=== PATIENT | female | born 1970 | race Caucasian/White ===

== ENCOUNTER 2016-12-04 14:52 | Outpatient (CLI) | payer OTHER ==
[~2016-12-04 14:52] MED LIST: AMLODIPINE10 M1 PO; ASPIRIN ADULT L81 M1 PO; ASPIRIN81 M1 PO; COUMADIN5 MG PO; COZAAR50 MG PO; CYCLOBENZAPRINE10 M5 OP; CYCLOBENZAPRINE10 M7 PO; FUROSEMIDE20 M1 PO; HCTZ PO; HYDRO PAR25 MG; LASIX20 MG PO; LOSARTAN POTAS100 MG PO; NAPROSYN500 MG PO; NAPROXEN550 MG OP; NEURONTIN100 M1 PO; NIASPAN750 MG PO; NORCO 10/325 MG1 TAB PO; NORVASC10 MG PO; PRAVACHOL40 MG PO; PRAVASTATIN40 M1 PO; PRINIVIL10 M1 PO; TRAMADOL HYDROC PO; TRAMADOL/APAP 31 TAB PO; ULTRAM50 MG PO; ZOCOR20 M1 PO
[2016-12-16] MEDS ORDERED: ATORVASTATIN CA40 MG PO (16:08)
[2016-12-16] MEDS ORDERED: BACLOFEN10 M1 PO (16:08)
[2016-12-16] MEDS ORDERED: PROAIR HFA8.5 GM IH (16:08)
[2016-12-16] MEDS ORDERED: HYDROCHLOROTH12.5 M1 PO (16:08)
[2016-12-16] MEDS ORDERED: LOSARTAN POTAS100 MG PO (16:08)
[2017-02-01] MEDS ORDERED: BENADRYL25 M3 PO (16:49)
== END 2016-12-04 20:20 | disposition home or self-care (01) ==
LOC: MLB 14:52
PROVIDERS: ATTEND Family Medicine
DX: I82.402 Acute embolism and thrombosis of unspecified deep veins of left lower extremity (principal)

== ENCOUNTER 2016-12-23 15:30 | Outpatient (CLI) | payer OTHER ==
[~2016-12-23 15:30] MED LIST changes: +ATORVASTATIN CA40 MG PO; +BACLOFEN10 M1 PO; +HYDROCHLOROTH12.5 M1 PO; +PROAIR HFA8.5 GM IH
[2017-02-01] MEDS ORDERED: BENADRYL25 M3 PO (16:49)
== END 2016-12-23 21:57 | disposition home or self-care (01) ==
LOC: MLB 15:30
PROVIDERS: ATTEND Family Medicine
DX: Z51.81 Encounter for therapeutic drug level monitoring (principal); I82.402 Acute embolism and thrombosis of unspecified deep veins of left lower extremity; Z79.01 Long term (current) use of anticoagulants

== ENCOUNTER 2017-01-30 08:07 | Outpatient (CLI) | payer OTHER ==
[~2017-01-30 08:07] MED LIST changes: +ALBU0.0946 IH; -AMLODIPINE10 M1 PO; -ASPIRIN ADULT L81 M1 PO; -ASPIRIN81 M1 PO; +ATOR40TA40 PO; -ATORVASTATIN CA40 MG PO; +BACL10TA4 PO; -BACLOFEN10 M1 PO; -COUMADIN5 MG PO; -COZAAR50 MG PO; -CYCLOBENZAPRINE10 M5 OP; -CYCLOBENZAPRINE10 M7 PO; -FUROSEMIDE20 M1 PO; -HCTZ PO; +HYDR12.51 PO; -HYDRO PAR25 MG; -HYDROCHLOROTH12.5 M1 PO; -LASIX20 MG PO; +LOSA100T25 PO; -LOSARTAN POTAS100 MG PO; -NAPROSYN500 MG PO; -NAPROXEN550 MG OP; -NEURONTIN100 M1 PO; -NIASPAN750 MG PO; -NORCO 10/325 MG1 TAB PO; -NORVASC10 MG PO; -PRAVACHOL40 MG PO; -PRAVASTATIN40 M1 PO; -PRINIVIL10 M1 PO; -PROAIR HFA8.5 GM IH; +TRAM50TA94 PO; -TRAMADOL HYDROC PO; -TRAMADOL/APAP 31 TAB PO; -ULTRAM50 MG PO; +WARF-18 PO; -ZOCOR20 M1 PO
[2017-01-30 09:16] LABS: INR 1.7 (0.8-1.2); PROTHROMBIN TIME 16.1 secs (10.8-13.4)
[2017-01-30 09:17] LABS: ALBUMIN 3.7 g/dL (3.4-5.0); CALCIUM 8.8 mg/dL (8.5-10.1); CARBON DIOXIDE 29.1 mmol/L (21-32); CHOL/HDL RATIO 3.1 (1-4.5); POTASSIUM 4.1 mmol/L (3.5-5.1); TOTAL BILIRUBIN 0.3 mg/dL (0.0-1.0)
== END 2017-01-30 19:59 | disposition home or self-care (01) ==
LOC: MLB 08:07
PROVIDERS: ATTEND Family Medicine
DX: I10 Essential (primary) hypertension (principal); E78.5 Hyperlipidemia, unspecified
CPT/HCPCS: 36415; 80053; 85610

== ENCOUNTER 2017-02-01 16:27 | Emergency (ER) | payer OTHER ==
[~2017-02-01] VITALS: Ht 170.2 cm; Wt 113.4 kg
[2017-02-01 16:46] VITALS: BP 146/65
[2017-02-01] MEDS ORDERED: DIPH25TA53 PO (16:49)
--- NOTE | 2017-02-01 17:00 | NUR ---
Patient to US via wheelchair per tech.
--- NOTE | 2017-02-01 17:19 | NUR ---
Patient back from US taken to bed 06 via wheelchair per tech.
--- NOTE | 2017-02-01 17:20 | NUR ---
PT PRESENT TO ER DUE TO LEFT LEG SWELLING X1 WEEK;DENIES NUMBNESS/TINGLING SENSATION ON LEFT FOOT;MILD REDNESS NOTED;DENIES CP/SOB/COUGH/N/V/F AT THIS TIME.SKIN IS INTACT;UNLABORED BREATHING W/SYMMETRICAL CHEST EXPANSION;AAOX4;NO ACUTE DSITRESS NOTED AT THIS TIME;HOB ELEVATED;NEEDS ATTENDED;SAFETY MEASURES INSTITUTED;MD MADE AWARE OF PT'S CONDITION.
--- NOTE | 2017-02-01 17:29 | NUR ---
Thea pritchett in [facility] - 02/01/17 at [address] GUADALUPE AT [facility].
--- NOTE | 2017-02-01 17:45 | NUR ---
PT RESTING ON BED; AT BEDSIDE;NO ACUTE DISTRESS NOTED AT THIS TIME;WILL CONTINUE TO MONITOR PT.
--- NOTE | 2017-02-01 18:05 | NUR ---
DR GUADALUPE AT BEDSIDE.
--- NOTE | 2017-02-01 18:06 | NUR ---
Dr. Sampson evaluating patient at bedside.
[2017-02-01] MEDS ORDERED: KETOROLAC 60 MG/2 ML VIAL IM ONE (18:15)
--- NOTE | 2017-02-01 18:26 | NUR ---
PT SITTING ON BED;TALKING TO HER ;NO ACUTE DISTRESS NOTED AT THIS TIME;WILL CONTINUE TO MONITOR PT.
[2017-02-01 18:44] VITALS: BP 121/67
--- NOTE | 2017-02-01 18:44 | NUR ---
Patient discharged with v/s stable. Written and verbal after care instructions given and explained.Patient alert, oriented and verbalized understanding of instructions. Ambulatory with steady gait. All questions addressed prior to discharge. ID band removed. Patient advised to follow up with PMD. Rx of KEFLEX AND BACTRIM given. Patient educated on indication of medication including possible reaction and side effects. Opportunity to ask questions provided and answered.
== END 2017-02-01 18:44 | disposition home or self-care (01) ==
LOC: MED 16:27
DX: L03.116 Cellulitis of left lower limb (principal); J44.9 Chronic obstructive pulmonary disease, unspecified; I10 Essential (primary) hypertension; F17.200 Nicotine dependence, unspecified, uncomplicated; Z91.040 Latex allergy status; Z88.8 Allergy status to other drugs, medicaments and biological substances; Z98.890 Other specified postprocedural states; Z86.718 Personal history of other venous thrombosis and embolism; Z79.899 Other long term (current) drug therapy
CPT/HCPCS: 93971; 96372; 99284; J1885

== ENCOUNTER 2017-02-14 07:30 | Outpatient (CLI) | payer OTHER ==
[~2017-02-14 07:30] MED LIST changes: -ALBU0.0946 IH; +AMLODIPINE10 M1 PO; +ASPIRIN ADULT L81 M1 PO; +ASPIRIN81 M1 PO; -ATOR40TA40 PO; +ATORVASTATIN CA40 MG PO; -BACL10TA4 PO; +BACLOFEN10 M1 PO; +BENADRYL25 M3 PO; +COUMADIN5 MG PO; +COZAAR50 MG PO; +CYCLOBENZAPRINE10 M5 OP; +CYCLOBENZAPRINE10 M7 PO; +FUROSEMIDE20 M1 PO; +HCTZ PO; -HYDR12.51 PO; +HYDRO PAR25 MG; +HYDROCHLOROTH12.5 M1 PO; +LASIX20 MG PO; -LOSA100T25 PO; +LOSARTAN POTAS100 MG PO; +NAPROSYN500 MG PO; +NAPROXEN550 MG OP; +NEURONTIN100 M1 PO; +NIASPAN750 MG PO; +NORCO 10/325 MG1 TAB PO; +NORVASC10 MG PO; +PRAVACHOL40 MG PO; +PRAVASTATIN40 M1 PO; +PRINIVIL10 M1 PO; +PROAIR HFA8.5 GM IH; -TRAM50TA94 PO; +TRAMADOL HYDROC PO; +TRAMADOL/APAP 31 TAB PO; +ULTRAM50 MG PO; -WARF-18 PO; +ZOCOR20 M1 PO
== END 2017-02-14 08:45 | disposition home or self-care (01) ==
LOC: MRD 07:30
PROVIDERS: ATTEND Family Medicine
PROC: B42HZZZ Computerized Tomography (CT Scan) of Bilateral Lower Extremity Arteries (ICD-10-PCS; principal; 2017-02-14)
DX: I73.9 Peripheral vascular disease, unspecified (principal)

== ENCOUNTER 2017-02-17 13:38 | Emergency (ER) | payer OTHER ==
[~2017-02-17] VITALS: Ht 170.2 cm; Wt 113.4 kg
[~2017-02-17 13:38] MED LIST changes: +ALBU0.0946 IH; -AMLODIPINE10 M1 PO; -ASPIRIN ADULT L81 M1 PO; -ASPIRIN81 M1 PO; +ATOR40TA40 PO; -ATORVASTATIN CA40 MG PO; +BACL10TA4 PO; -BACLOFEN10 M1 PO; -BENADRYL25 M3 PO; -COUMADIN5 MG PO; -COZAAR50 MG PO; -CYCLOBENZAPRINE10 M5 OP; -CYCLOBENZAPRINE10 M7 PO; +DIPH25TA53 PO; -FUROSEMIDE20 M1 PO; -HCTZ PO; +HYDR12.51 PO; -HYDRO PAR25 MG; -HYDROCHLOROTH12.5 M1 PO; -LASIX20 MG PO; +LOSA100T25 PO; -LOSARTAN POTAS100 MG PO; -NAPROSYN500 MG PO; -NAPROXEN550 MG OP; -NEURONTIN100 M1 PO; -NIASPAN750 MG PO; -NORCO 10/325 MG1 TAB PO; -NORVASC10 MG PO; -PRAVACHOL40 MG PO; -PRAVASTATIN40 M1 PO; -PRINIVIL10 M1 PO; -PROAIR HFA8.5 GM IH; -TRAMADOL HYDROC PO; -TRAMADOL/APAP 31 TAB PO; -ULTRAM50 MG PO; +WARF-18 PO; -ZOCOR20 M1 PO
[2017-02-17 13:42] VITALS: BP 109/65
--- NOTE | 2017-02-17 16:30 | NUR ---
PATIENT PRESENTS TO ED WITH C/O LEFT LEG PAIN AND SWELLING SINCE ., ULTRASOUND WAS DONE LAST MONDAY WITH -VE RESULT; DENIES N/V/D; SKIN IS PINK/WARM/DRY; AAOX4 WITH EVEN AND STEADY GAIT; LUNGS CLEAR BL; HR EVEN AND REGULAR; PT DENIES ANY FEVER, CP, SOB, OR COUGH AT THIS TIME; PATIENT STATES PAIN OF 5/10 AT THIS TIME; VSS; PATIENT POSITIONED FOR COMFORT; HOB ELEVATED; BEDRAILS UP X2; BED DOWN. ER MD MADE AWARE OF PT STATUS.
--- NOTE | 2017-02-17 16:42 | NUR ---
AAO PT BEING ASSESS BY DR GUADALUPE AT BEDSIDE
[2017-02-17 17:00] VITALS: BP 119/78
--- NOTE | 2017-02-17 17:00 | NUR ---
Patient discharged with v/s stable. Written and verbal after care instructions given and explained. Patient verbalized understanding. Ambulatory with steady gait. All questions addressed prior to discharge. Advised to follow up with PMD.
== END 2017-02-17 17:00 | disposition home or self-care (01) ==
LOC: MED 13:40
DX: R60.0 Localized edema (principal); M79.662 Pain in left lower leg; M25.572 Pain in left ankle and joints of left foot; I10 Essential (primary) hypertension; J44.9 Chronic obstructive pulmonary disease, unspecified; Z91.040 Latex allergy status; Z88.8 Allergy status to other drugs, medicaments and biological substances; Z79.899 Other long term (current) drug therapy; Z98.890 Other specified postprocedural states
CPT/HCPCS: 99283

== ENCOUNTER 2017-03-02 07:08 | Outpatient (CLI) | payer OTHER ==
[2017-03-02 09:45] LABS: PROTHROMBIN TIME 18.9 secs (10.8-13.4)
[2017-03-02 10:07] LABS: ANION GAP 14.1 (8-16); CALCIUM 8.8 mg/dL (8.5-10.1); CARBON DIOXIDE 25.4 mmol/L (21-32); CREATININE 0.8 mg/dL (0.6-1.3); POTASSIUM 4.5 mmol/L (3.5-5.1); TOTAL BILIRUBIN 0.2 mg/dL (0.0-1.0); TOTAL PROTEIN, SERUM 7.1 g/dL (6.4-8.2)
[2017-03-02 10:20] LABS: ALBUMIN 3.6 g/dL (3.4-5.0)
== END 2017-03-02 19:58 | disposition home or self-care (01) ==
LOC: MLB 07:08
PROVIDERS: ATTEND Family Medicine
DX: Z51.81 Encounter for therapeutic drug level monitoring (principal); I12.9 Hypertensive chronic kidney disease with stage 1 through stage 4 chronic kidney disease, or unspecified chronic kidney disease; N18.2 Chronic kidney disease, stage 2 (mild); I82.409 Acute embolism and thrombosis of unspecified deep veins of unspecified lower extremity; Z79.01 Long term (current) use of anticoagulants
CPT/HCPCS: 36415; 80053; 85610

== ENCOUNTER 2017-03-25 15:04 | Outpatient (CLI) | payer OTHER ==
[2017-03-25 16:21] LABS: INR 1.8 (0.8-1.2); PROTHROMBIN TIME 18.3 secs (10.8-13.4)
== END 2017-03-25 21:32 | disposition home or self-care (01) ==
LOC: MLB 15:04
PROVIDERS: ATTEND Family Medicine
DX: I82.402 Acute embolism and thrombosis of unspecified deep veins of left lower extremity (principal)
CPT/HCPCS: 36415; 85610

== ENCOUNTER 2017-07-03 09:01 | Outpatient (RCR) | payer OTHER ==
[~2017-07-03 09:01] MED LIST changes: -ALBU0.0946 IH; +AMLODIPINE10 M1 PO; +ASPIRIN ADULT L81 M1 PO; +ASPIRIN81 M1 PO; -ATOR40TA40 PO; +ATORVASTATIN CA40 MG PO; -BACL10TA4 PO; +BACLOFEN10 M1 PO; +BENADRYL25 M3 PO; +COUMADIN5 MG PO; +COZAAR50 MG PO; +CYCLOBENZAPRINE10 M5 OP; +CYCLOBENZAPRINE10 M7 PO; -DIPH25TA53 PO; +FUROSEMIDE20 M1 PO; +HCTZ PO; -HYDR12.51 PO; +HYDRO PAR25 MG; +HYDROCHLOROTH12.5 M1 PO; +LASIX20 MG PO; -LOSA100T25 PO; +LOSARTAN POTAS100 MG PO; +NAPROSYN500 MG PO; +NAPROXEN550 MG OP; +NEURONTIN100 M1 PO; +NIASPAN750 MG PO; +NORCO 10/325 MG1 TAB PO; +NORVASC10 MG PO; +PRAVACHOL40 MG PO; +PRAVASTATIN40 M1 PO; +PRINIVIL10 M1 PO; +PROAIR HFA8.5 GM IH; +TRAMADOL HYDROC PO; +TRAMADOL/APAP 31 TAB PO; +ULTRAM50 MG PO; -WARF-18 PO; +ZOCOR20 M1 PO
== END 2017-07-15 | disposition home or self-care (01) ==
LOC: MLB 09:01 → EDBD 09:01
PROVIDERS: ATTEND Family Medicine
DX: I82.4Z2 Acute embolism and thrombosis of unspecified deep veins of left distal lower extremity (principal)

== ENCOUNTER 2017-10-07 10:54 | Outpatient (CLI) | payer OTHER ==
[~2017-10-07 10:54] MED LIST changes: +ALBU-118 IH; -AMLODIPINE10 M1 PO; -ASPIRIN ADULT L81 M1 PO; -ASPIRIN81 M1 PO; +ATOR40TA40 PO; -ATORVASTATIN CA40 MG PO; +BACL10TA4 PO; -BACLOFEN10 M1 PO; -BENADRYL25 M3 PO; -COUMADIN5 MG PO; -COZAAR50 MG PO; -CYCLOBENZAPRINE10 M5 OP; -CYCLOBENZAPRINE10 M7 PO; +DIPH25TA53 PO; -FUROSEMIDE20 M1 PO; -HCTZ PO; +HYDR12.51 PO; -HYDRO PAR25 MG; -HYDROCHLOROTH12.5 M1 PO; -LASIX20 MG PO; +LOSA100T25 PO; -LOSARTAN POTAS100 MG PO; -NAPROSYN500 MG PO; -NAPROXEN550 MG OP; -NEURONTIN100 M1 PO; -NIASPAN750 MG PO; -NORCO 10/325 MG1 TAB PO; -NORVASC10 MG PO; -PRAVACHOL40 MG PO; -PRAVASTATIN40 M1 PO; -PRINIVIL10 M1 PO; -PROAIR HFA8.5 GM IH; -TRAMADOL HYDROC PO; -TRAMADOL/APAP 31 TAB PO; -ULTRAM50 MG PO; +WARF-18 PO; -ZOCOR20 M1 PO
[2017-10-07 11:39] LABS: PROTHROMBIN TIME 19.2 secs (10.8-13.4)
== END 2017-10-08 22:57 | disposition home or self-care (01) ==
LOC: MLB 10:54
PROVIDERS: ATTEND Family Medicine
DX: I10 Essential (primary) hypertension (principal); E11.9 Type 2 diabetes mellitus without complications
CPT/HCPCS: 36415; 85610

== ENCOUNTER 2017-10-28 12:43 | Outpatient (CLI) | payer OTHER ==
[2017-10-28 15:04] LABS: PROTHROMBIN TIME 15.6 secs (10.8-13.4)
== END 2017-10-28 20:29 | disposition home or self-care (01) ==
LOC: MLB 12:43
PROVIDERS: ATTEND Family Medicine
DX: I82.402 Acute embolism and thrombosis of unspecified deep veins of left lower extremity (principal); I10 Essential (primary) hypertension; J44.9 Chronic obstructive pulmonary disease, unspecified; J45.909 Unspecified asthma, uncomplicated
CPT/HCPCS: 36415; 85610

== ENCOUNTER 2017-11-25 12:45 | Outpatient (CLI) | payer OTHER ==
[2017-11-25 13:53] LABS: PROTHROMBIN TIME 21.4 secs (10.8-13.4)
== END 2017-11-25 22:16 | disposition home or self-care (01) ==
LOC: MLB 12:45
PROVIDERS: ATTEND Family Medicine
DX: I10 Essential (primary) hypertension (principal)
CPT/HCPCS: 36415; 85610

== ENCOUNTER 2017-12-30 13:08 | Outpatient (CLI) | payer OTHER ==
[2017-12-30 15:12] LABS: PROTHROMBIN TIME 22.8 secs (10.8-13.4)
== END 2017-12-30 21:19 | disposition home or self-care (01) ==
LOC: MLB 13:08
PROVIDERS: ATTEND Family Medicine
DX: I10 Essential (primary) hypertension (principal); I82.402 Acute embolism and thrombosis of unspecified deep veins of left lower extremity
CPT/HCPCS: 36415; 85610

== ENCOUNTER 2018-02-06 08:29 | Outpatient (CLI) | payer OTHER ==
[2018-02-06 09:11] LABS: BASOPHILS % (AUTO) 0.6 % (0.0-2.0); EOSINOPHILS # (AUTO) 0.1 K/uL (0-0.4); EOSINOPHILS % (AUTO) 1.4 % (0.0-4.0); HEMATOCRIT 40.8 % (36-48); HEMOGLOBIN 13.2 g/dL (12.0-16.0); LYMPHOCYTES # (AUTO) 1.3 K/uL (2.5-16.5); LYMPHOCYTES % (AUTO) 15.8 % (20.5-51.1); MEAN CORPUSCULAR HEMOGLOBIN 29 pg (27-31); MEAN CORPUSCULAR HGB CONC 32 g/dL (33-37); MEAN CORPUSCULAR VOLUME 88.8 fL (80-94); MONOCYTES # (AUTO) 0.6 K/uL (0.8-1.0); NEUTROPHILS # (AUTO) 6.4 K/uL (1.8-7.7); NEUTROPHILS % (AUTO) 75.2 % (42.2-75.2); PLATELET COUNT (AUTO) 254 K/uL (140-450); RED BLOOD CELL COUNT(AUTO) 4.59 MIL/uL (4.20-5.40); RED CELL DISTRIBUTION WIDTH 17.6 % (11.6-13.7); WHITE BLOOD COUNT (AUTO) 8.4 K/uL (4.8-10.8)
[2018-02-06 09:38] LABS: ALBUMIN 3.8 g/dL (3.4-5.0); ANION GAP 13.1 (8-16); CARBON DIOXIDE 27.1 mmol/L (21-32); CHOL/HDL RATIO 3.4 (1-4.5); CREATININE 0.8 mg/dL (0.6-1.3); POTASSIUM 4.2 mmol/L (3.5-5.1); THYROID STIMULATING HORMONE 1.27 uIU/mL (0.34-3.74); TOTAL BILIRUBIN 0.3 mg/dL (0.0-1.0)
[2018-02-06 10:04] LABS: PROTHROMBIN TIME 21.2 secs (10.8-13.4)
== END 2018-02-06 20:37 | disposition home or self-care (01) ==
LOC: MLB 08:29
PROVIDERS: ATTEND Family Medicine
DX: I10 Essential (primary) hypertension (principal); E78.5 Hyperlipidemia, unspecified; I82.402 Acute embolism and thrombosis of unspecified deep veins of left lower extremity
CPT/HCPCS: 36415; 80053; 84443; 85025; 85610

== ENCOUNTER 2018-03-04 08:00 | Outpatient (CLI) | payer OTHER ==
[2018-03-04 08:48] LABS: PROTHROMBIN TIME 20.7 secs (10.8-13.4)
== END 2018-03-04 20:03 | disposition home or self-care (01) ==
LOC: MLB 08:00
PROVIDERS: ATTEND Family Medicine
DX: I82.402 Acute embolism and thrombosis of unspecified deep veins of left lower extremity (principal); I10 Essential (primary) hypertension; J44.9 Chronic obstructive pulmonary disease, unspecified
CPT/HCPCS: 36415; 85610

== ENCOUNTER 2018-04-01 08:51 | Outpatient (CLI) | payer OTHER | END 2018-04-01 22:30 | disposition home or self-care (01) | LOC: MLB 08:51 | PROVIDERS: ATTEND Family Medicine | DX: I82.402 Acute embolism and thrombosis of unspecified deep veins of left lower extremity (principal) | CPT/HCPCS: 36415; 85610 ==

== ENCOUNTER 2018-05-14 08:31 | Outpatient (CLI) | payer OTHER ==
[2018-05-14 09:35] LABS: PROTHROMBIN TIME 20.3 secs (10.8-13.4)
[2018-05-14 09:45] LABS: ALBUMIN 3.8 g/dL (3.4-5.0); ANION GAP 15.6 (8-16); CARBON DIOXIDE 23.4 mmol/L (21-32); CHOL/HDL RATIO 3.4 (1-4.5); TOTAL BILIRUBIN 0.4 mg/dL (0.0-1.0)
== END 2018-05-14 20:25 | disposition home or self-care (01) ==
LOC: MLB 08:31
PROVIDERS: ATTEND Family Medicine
DX: I10 Essential (primary) hypertension (principal); J44.9 Chronic obstructive pulmonary disease, unspecified; E78.5 Hyperlipidemia, unspecified; E11.9 Type 2 diabetes mellitus without complications; Z79.01 Long term (current) use of anticoagulants
CPT/HCPCS: 36415; 80053; 85610

== ENCOUNTER 2018-06-30 14:29 | Outpatient (CLI) | payer OTHER ==
[2018-06-30 15:18] LABS: PROTHROMBIN TIME 20.5 secs (10.8-13.4)
== END 2018-06-30 22:08 | disposition home or self-care (01) ==
LOC: MLB 14:29
PROVIDERS: ATTEND Family Medicine
DX: I82.402 Acute embolism and thrombosis of unspecified deep veins of left lower extremity (principal); I10 Essential (primary) hypertension; J44.9 Chronic obstructive pulmonary disease, unspecified; Z72.0 Tobacco use
CPT/HCPCS: 36415; 85610

== ENCOUNTER 2018-08-22 08:41 | Outpatient (CLI) | payer OTHER ==
[~2018-08-22 08:41] MED LIST changes: +LOSA100T15 PO; -LOSA100T25 PO
[2018-08-22 09:40] LABS: BASOPHILS # (AUTO) 0.1 K/uL (0.00-0.22); BASOPHILS % (AUTO) 0.7 % (0.0-2.0); EOSINOPHILS # (AUTO) 0.1 K/uL (0-0.4); EOSINOPHILS % (AUTO) 1.6 % (0.0-4.0); HEMATOCRIT 42.2 % (36-48); HEMOGLOBIN 13.7 g/dL (12.0-16.0); LYMPHOCYTES # (AUTO) 1.4 K/uL (2.5-16.5); LYMPHOCYTES % (AUTO) 18.1 % (20.5-51.1); MEAN CORPUSCULAR HEMOGLOBIN 29 pg (27-31); MEAN CORPUSCULAR HGB CONC 32 g/dL (33-37); MEAN CORPUSCULAR VOLUME 89.7 fL (80-94); MONOCYTES # (AUTO) 0.5 K/uL (0.8-1.0); MONOCYTES % (AUTO) 6.9 % (1.7-9.3); NEUTROPHILS # (AUTO) 5.8 K/uL (1.8-7.7); NEUTROPHILS % (AUTO) 72.7 % (42.2-75.2); PLATELET COUNT (AUTO) 263 K/uL (140-450); RED BLOOD CELL COUNT(AUTO) 4.71 MIL/uL (4.20-5.40); RED CELL DISTRIBUTION WIDTH 18.1 % (11.6-13.7); WHITE BLOOD COUNT (AUTO) 7.9 K/uL (4.8-10.8)
[2018-08-22 10:10] LABS: PROTHROMBIN TIME 21.4 secs (10.8-13.4)
[2018-08-22 10:35] LABS: ALBUMIN 3.8 g/dL (3.4-5.0); ANION GAP 10.6 (8-16); CARBON DIOXIDE 31.6 mmol/L (21-32); CREATININE 0.9 mg/dL (0.6-1.3); POTASSIUM 4.2 mmol/L (3.5-5.1); TOTAL BILIRUBIN 0.3 mg/dL (0.0-1.0)
== END 2018-08-22 21:33 | disposition home or self-care (01) ==
LOC: MLB 08:41
PROVIDERS: ATTEND Family Medicine
DX: I82.502 Chronic embolism and thrombosis of unspecified deep veins of left lower extremity (principal); I10 Essential (primary) hypertension; J44.9 Chronic obstructive pulmonary disease, unspecified; Z91.040 Latex allergy status
CPT/HCPCS: 36415; 80053; 85025; 85610

== ENCOUNTER 2018-10-07 14:30 | Emergency (ER) | payer OTHER ==
[~2018-10-07] VITALS: Ht 170.2 cm; Wt 113.4 kg
[~2018-10-07 14:30] MED LIST changes: -LOSA100T15 PO; +LOSA100T51 PO
[2018-10-07 14:38] VITALS: BP_SYST 10; BP_SYST 101; BP_DIAS 63
--- NOTE | 2018-10-07 14:40 | NUR ---
PT AMBULATES TO BED 12
--- NOTE | 2018-10-07 14:58 | NUR ---
48/ F BIB SELF, C/O ITCHY SKIN ULCER ON LEFT LEG FOR 1 WEEK, HAS HAD ULCER FOR 1 YEAR. PT. HAS BEEN SCRATCHING, SKIN BROKEN, NO DISCHARGE. LEG IS SWOLLEN +2 PITTING EDEMA, RED, AND TENDER TO TOUCH. DENIES PAIN, SOB, OR INJURY. HAS HX OF TWO DVT IN LEFT LEG. A0X4, STEADY GAIT, SAFETY PRECAUTION IN PLACE.
[2018-10-07] MEDS ORDERED: SULFAMETH/TRIMETH DS 800/160MG 1 TAB PO ONE (15:10)
[2018-10-07] MEDS ORDERED: ACETAMINOPHEN EXTRA STRENGTH 500 MG TAB PO ONE (15:10)
[2018-10-07 15:21] VITALS: BP 101/63
--- NOTE | 2018-10-07 15:21 | NUR ---
Patient discharged with v/s stable. Written and verbal after care instructions given and explained. Patient alert, oriented and verbalized understanding of instructions. Ambulatory with steady gait. All questions addressed prior to discharge. ID band removed. Patient advised to follow up with PMD. Rx of TYLENOL, TRAMADOL, BACTRIM given. Patient educated on indication of medication including possible reaction and side effects. Opportunity to ask questions provided and answered.
== END 2018-10-07 15:21 | disposition home or self-care (01) ==
LOC: MED 14:30
DX: L03.116 Cellulitis of left lower limb (principal); J45.909 Unspecified asthma, uncomplicated; I10 Essential (primary) hypertension; Z79.899 Other long term (current) drug therapy; Z88.8 Allergy status to other drugs, medicaments and biological substances; Z91.040 Latex allergy status
CPT/HCPCS: 99283

== ENCOUNTER 2018-10-27 14:41 | Outpatient (CLI) | payer OTHER ==
[2018-10-27 15:31] LABS: PROTHROMBIN TIME 12.7 secs (10.8-13.4)
== END 2018-10-27 21:05 | disposition home or self-care (01) ==
LOC: MLB 14:41
PROVIDERS: ATTEND Family Medicine
DX: I82.402 Acute embolism and thrombosis of unspecified deep veins of left lower extremity (principal); I10 Essential (primary) hypertension; J45.909 Unspecified asthma, uncomplicated
CPT/HCPCS: 36415; 85610

== ENCOUNTER 2018-11-27 08:00 | Outpatient (CLI) | payer OTHER ==
[2018-11-27 08:23] LABS: BASOPHILS # (AUTO) 0.1 K/uL (0.00-0.22); BASOPHILS % (AUTO) 0.6 % (0.0-2.0); EOSINOPHILS # (AUTO) 0.2 K/uL (0-0.4); HEMATOCRIT 40.8 % (36-48); HEMOGLOBIN 13.2 g/dL (12.0-16.0); LYMPHOCYTES # (AUTO) 1.3 K/uL (2.5-16.5); LYMPHOCYTES % (AUTO) 15.5 % (20.5-51.1); MEAN CORPUSCULAR HEMOGLOBIN 29 pg (27-31); MEAN CORPUSCULAR HGB CONC 32 g/dL (33-37); MEAN CORPUSCULAR VOLUME 90.8 fL (80-94); MONOCYTES # (AUTO) 0.5 K/uL (0.8-1.0); MONOCYTES % (AUTO) 6.1 % (1.7-9.3); NEUTROPHILS # (AUTO) 6.4 K/uL (1.8-7.7); NEUTROPHILS % (AUTO) 75.8 % (42.2-75.2); PLATELET COUNT (AUTO) 265 K/uL (140-450); RED BLOOD CELL COUNT(AUTO) 4.49 MIL/uL (4.20-5.40); RED CELL DISTRIBUTION WIDTH 17.9 % (11.6-13.7); WHITE BLOOD COUNT (AUTO) 8.5 K/uL (4.8-10.8)
[2018-11-27 08:42] LABS: ALBUMIN 3.9 g/dL (3.4-5.0); ANION GAP 11.1 (8-16); CARBON DIOXIDE 29.6 mmol/L (21-32); CHOL/HDL RATIO 3.5 (1-4.5); CREATININE 0.8 mg/dL (0.6-1.3); POTASSIUM 3.7 mmol/L (3.5-5.1); TOTAL BILIRUBIN 0.3 mg/dL (0.0-1.0)
== END 2018-11-27 20:09 | disposition home or self-care (01) ==
LOC: MLB 08:00
PROVIDERS: ATTEND Family Medicine
DX: I10 Essential (primary) hypertension (principal); I82.502 Chronic embolism and thrombosis of unspecified deep veins of left lower extremity; E11.9 Type 2 diabetes mellitus without complications; J44.9 Chronic obstructive pulmonary disease, unspecified; Z72.0 Tobacco use
CPT/HCPCS: 36415; 80053; 85025; 85610

== ENCOUNTER 2018-12-22 08:39 | Outpatient (CLI) | payer OTHER ==
[2018-12-22 08:58] LABS: BASOPHILS # (AUTO) 0.2 K/uL (0.00-0.22); BASOPHILS % (AUTO) 1.8 % (0.0-2.0); EOSINOPHILS # (AUTO) 0.3 K/uL (0-0.4); HEMATOCRIT 39.6 % (36-48); HEMOGLOBIN 12.8 g/dL (12.0-16.0); LYMPHOCYTES # (AUTO) 1.4 K/uL (2.5-16.5); LYMPHOCYTES % (AUTO) 15.4 % (20.5-51.1); MEAN CORPUSCULAR HEMOGLOBIN 29 pg (27-31); MEAN CORPUSCULAR HGB CONC 32 g/dL (33-37); MEAN CORPUSCULAR VOLUME 90.6 fL (80-94); MONOCYTES # (AUTO) 0.5 K/uL (0.8-1.0); MONOCYTES % (AUTO) 5.5 % (1.7-9.3); NEUTROPHILS # (AUTO) 6.7 K/uL (1.8-7.7); NEUTROPHILS % (AUTO) 74.3 % (42.2-75.2); PLATELET COUNT (AUTO) 337 K/uL (140-450); RED BLOOD CELL COUNT(AUTO) 4.37 MIL/uL (4.20-5.40); RED CELL DISTRIBUTION WIDTH 17.5 % (11.6-13.7)
[2018-12-22 09:28] LABS: PROTHROMBIN TIME 18.5 secs (10.8-13.4)
[2018-12-22 09:33] LABS: ALBUMIN 3.5 g/dL (3.4-5.0); ANION GAP 10.4 (8-16); CARBON DIOXIDE 28.6 mmol/L (21-32); TOTAL BILIRUBIN 0.3 mg/dL (0.0-1.0)
== END 2018-12-22 21:30 | disposition home or self-care (01) ==
LOC: MLB 08:39
PROVIDERS: ATTEND Family Medicine
DX: L03.116 Cellulitis of left lower limb (principal); J45.909 Unspecified asthma, uncomplicated; I10 Essential (primary) hypertension
CPT/HCPCS: 36415; 80053; 85025; 85610

== ENCOUNTER 2019-02-16 08:56 | Outpatient (CLI) | payer OTHER | END 2019-02-16 23:06 | disposition home or self-care (01) | LOC: MLB 08:56 | PROVIDERS: ATTEND Family Medicine | DX: I82.409 Acute embolism and thrombosis of unspecified deep veins of unspecified lower extremity (principal) | CPT/HCPCS: 36415; 85610 ==

== ENCOUNTER 2019-03-31 09:57 | Outpatient (CLI) | payer OTHER | END 2019-03-31 20:16 | disposition home or self-care (01) | LOC: MLB 09:57 | PROVIDERS: ATTEND Family Medicine | DX: I82.409 Acute embolism and thrombosis of unspecified deep veins of unspecified lower extremity (principal) | CPT/HCPCS: 36415; 85610 ==

== ENCOUNTER 2019-05-25 14:36 | Outpatient (CLI) | payer OTHER ==
[2019-05-25 15:45] LABS: PROTHROMBIN TIME 15.3 secs (10.8-13.4)
== END 2019-05-25 21:29 | disposition home or self-care (01) ==
LOC: MLB 14:36
PROVIDERS: ATTEND Family Medicine
DX: I82.409 Acute embolism and thrombosis of unspecified deep veins of unspecified lower extremity (principal)
CPT/HCPCS: 36415; 85610

== ENCOUNTER 2019-06-28 07:49 | Outpatient (CLI) | payer OTHER ==
[2019-06-28 10:47] LABS: BASOPHILS # (AUTO) 0.1 K/uL (0.00-0.22); EOSINOPHILS # (AUTO) 0.1 K/uL (0-0.4); EOSINOPHILS % (AUTO) 1.4 % (0.0-4.0); HEMOGLOBIN 13.6 g/dL (12.0-16.0); LYMPHOCYTES # (AUTO) 1.4 K/uL (2.5-16.5); LYMPHOCYTES % (AUTO) 15.8 % (20.5-51.1); MEAN CORPUSCULAR HEMOGLOBIN 30 pg (27-31); MEAN CORPUSCULAR HGB CONC 33 g/dL (33-37); MEAN CORPUSCULAR VOLUME 91.3 fL (80-94); MONOCYTES # (AUTO) 0.5 K/uL (0.8-1.0); MONOCYTES % (AUTO) 5.2 % (1.7-9.3); NEUTROPHILS # (AUTO) 6.9 K/uL (1.8-7.7); NEUTROPHILS % (AUTO) 76.6 % (42.2-75.2); PLATELET COUNT (AUTO) 255 K/uL (140-450); RED CELL DISTRIBUTION WIDTH 17.5 % (11.6-13.7)
[2019-06-28 11:18] LABS: PROTHROMBIN TIME 16.7 secs (10.8-13.4)
[2019-06-28 13:18] LABS: ANION GAP 12.6 (8-16); CARBON DIOXIDE 27.6 mmol/L (21-32); POTASSIUM 4.2 mmol/L (3.5-5.1)
[2019-06-28 13:19] LABS: ALBUMIN 3.5 g/dL (3.4-5.0); CREATININE 0.8 mg/dL (0.6-1.3); TOTAL BILIRUBIN 0.3 mg/dL (0.0-1.0)
[2019-06-28 16:15] LABS: CHOL/HDL RATIO 4.1 (1-4.5)
== END 2019-06-28 22:24 | disposition home or self-care (01) ==
LOC: MLB 07:49
PROVIDERS: ATTEND Family Medicine
DX: I82.5Z2 Chronic embolism and thrombosis of unspecified deep veins of left distal lower extremity (principal); I10 Essential (primary) hypertension
CPT/HCPCS: 36415; 80053; 82306; 85025; 85610

== ENCOUNTER 2019-07-23 08:13 | Outpatient (CLI) | payer OTHER | END 2019-07-23 21:08 | disposition home or self-care (01) | LOC: MRD 08:13 | PROVIDERS: ATTEND Family Medicine | DX: N60.02 Solitary cyst of left breast (principal); N64.52 Nipple discharge | CPT/HCPCS: 76641 ==

== ENCOUNTER 2019-08-31 14:57 | Outpatient (CLI) | payer OTHER ==
[2019-09-11 12:23] LABS: PROTHROMBIN TIME 21.9 secs (10.8-13.4)
== END 2019-08-31 22:40 | disposition home or self-care (01) ==
LOC: MLB 14:57
PROVIDERS: ATTEND Family Medicine
DX: I82.502 Chronic embolism and thrombosis of unspecified deep veins of left lower extremity (principal)
CPT/HCPCS: 36415; 85610

== ENCOUNTER 2019-09-28 11:04 | Outpatient (CLI) | payer OTHER ==
[2019-09-28 12:26] LABS: PROTHROMBIN TIME 18.9 secs (10.8-13.4)
== END 2019-09-28 20:22 | disposition home or self-care (01) ==
LOC: MLB 11:04
PROVIDERS: ATTEND Family Medicine
DX: I82.5Z2 Chronic embolism and thrombosis of unspecified deep veins of left distal lower extremity (principal); F15.90 Other stimulant use, unspecified, uncomplicated; Z91.040 Latex allergy status; Z91.09 Other allergy status, other than to drugs and biological substances; Z72.0 Tobacco use; I10 Essential (primary) hypertension; J45.909 Unspecified asthma, uncomplicated
CPT/HCPCS: 36415; 85610

== ENCOUNTER 2019-10-27 09:36 | Outpatient (CLI) | payer OTHER ==
[2019-10-27 11:30] LABS: PROTHROMBIN TIME 20.6 secs (10.8-13.4)
== END 2019-10-27 20:40 | disposition home or self-care (01) ==
LOC: MLB 09:36
PROVIDERS: ATTEND Family Medicine
DX: I82.4Z9 Acute embolism and thrombosis of unspecified deep veins of unspecified distal lower extremity (principal)
CPT/HCPCS: 36415; 85610

== ENCOUNTER 2019-12-09 07:40 | Outpatient (CLI) | payer OTHER ==
[2019-12-09 08:13] LABS: BASOPHILS # (AUTO) 0.1 K/uL (0.00-0.22); EOSINOPHILS # (AUTO) 0.2 K/uL (0-0.4); EOSINOPHILS % (AUTO) 2.3 % (0.0-4.0); HEMATOCRIT 40.5 % (36-48); HEMOGLOBIN 13.8 g/dL (12.0-16.0); LYMPHOCYTES # (AUTO) 1.2 K/uL (2.5-16.5); LYMPHOCYTES % (AUTO) 17.6 % (20.5-51.1); MEAN CORPUSCULAR HEMOGLOBIN 31 pg (27-31); MEAN CORPUSCULAR HGB CONC 34 g/dL (33-37); MEAN CORPUSCULAR VOLUME 89.5 fL (80-94); MONOCYTES # (AUTO) 0.4 K/uL (0.8-1.0); MONOCYTES % (AUTO) 6.2 % (1.7-9.3); NEUTROPHILS # (AUTO) 5.1 K/uL (1.8-7.7); NEUTROPHILS % (AUTO) 72.9 % (42.2-75.2); PLATELET COUNT (AUTO) 225 K/uL (140-450); RED BLOOD CELL COUNT(AUTO) 4.53 MIL/uL (4.20-5.40)
[2019-12-09 08:41] LABS: ALBUMIN 3.7 g/dL (3.4-5.0); CARBON DIOXIDE 29.4 mmol/L (21-32); CHOL/HDL RATIO 4.2 (1-4.5); CREATININE 0.9 mg/dL (0.6-1.3); POTASSIUM 4.4 mmol/L (3.5-5.1); TOTAL BILIRUBIN 0.3 mg/dL (0.0-1.0)
== END 2019-12-09 22:01 | disposition home or self-care (01) ==
LOC: MLB 07:40
PROVIDERS: ATTEND Family Medicine
DX: I10 Essential (primary) hypertension (principal)
CPT/HCPCS: 36415; 80053; 82306; 85025

== ENCOUNTER 2019-12-28 13:33 | Outpatient (CLI) | payer OTHER ==
[2019-12-28 14:32] LABS: PROTHROMBIN TIME 23.1 secs (10.8-13.4)
== END 2019-12-28 17:14 | disposition home or self-care (01) ==
LOC: MLB 13:33
PROVIDERS: ATTEND Family Medicine
DX: I82.5Z2 Chronic embolism and thrombosis of unspecified deep veins of left distal lower extremity (principal)
CPT/HCPCS: 36415; 85610

== ENCOUNTER 2020-03-02 08:30 | Outpatient (CLI) | payer OTHER ==
[2020-03-02 09:08] LABS: BASOPHILS # (AUTO) 0.1 K/uL (0.00-0.22); BASOPHILS % (AUTO) 1.1 % (0.0-2.0); EOSINOPHILS # (AUTO) 0.1 K/uL (0-0.4); EOSINOPHILS % (AUTO) 1.8 % (0.0-4.0); HEMATOCRIT 41.3 % (36-48); HEMOGLOBIN 13.7 g/dL (12.0-16.0); LYMPHOCYTES # (AUTO) 1.3 K/uL (2.5-16.5); LYMPHOCYTES % (AUTO) 21.1 % (20.5-51.1); MEAN CORPUSCULAR HEMOGLOBIN 31 pg (27-31); MEAN CORPUSCULAR HGB CONC 33 g/dL (33-37); MEAN CORPUSCULAR VOLUME 94.4 fL (80-94); MONOCYTES # (AUTO) 0.4 K/uL (0.8-1.0); MONOCYTES % (AUTO) 6.1 % (1.7-9.3); NEUTROPHILS # (AUTO) 4.3 K/uL (1.8-7.7); NEUTROPHILS % (AUTO) 69.9 % (42.2-75.2); PLATELET COUNT (AUTO) 219 K/uL (140-450); RED BLOOD CELL COUNT(AUTO) 4.38 MIL/uL (4.20-5.40); RED CELL DISTRIBUTION WIDTH 16.2 % (11.6-13.7); WHITE BLOOD COUNT (AUTO) 6.2 K/uL (4.8-10.8)
[2020-03-02 09:40] LABS: ALBUMIN 3.6 g/dL (3.4-5.0); ANION GAP 13.8 (8-16); CARBON DIOXIDE 28.6 mmol/L (21-32); POTASSIUM 4.4 mmol/L (3.5-5.1); THYROID STIMULATING HORMONE 0.96 uIU/mL (0.34-3.74); TOTAL BILIRUBIN 0.4 mg/dL (0.0-1.0)
[2020-03-02 09:59] LABS: PROTHROMBIN TIME 18.5 secs (10.8-13.4)
== END 2020-03-02 15:25 | disposition home or self-care (01) ==
LOC: MLB 08:30
PROVIDERS: ATTEND Family Medicine
DX: I10 Essential (primary) hypertension (principal); I82.502 Chronic embolism and thrombosis of unspecified deep veins of left lower extremity
CPT/HCPCS: 36415; 80053; 82306; 84443; 85025; 85610

== ENCOUNTER 2020-04-04 13:09 | Outpatient (CLI) | payer OTHER ==
[2020-04-04 14:43] LABS: PROTHROMBIN TIME 20.3 secs (10.8-13.4)
== END 2020-04-04 20:01 | disposition home or self-care (01) ==
LOC: MLB 13:09
PROVIDERS: ATTEND Family Medicine
DX: I82.592 Chronic embolism and thrombosis of other specified deep vein of left lower extremity (principal)
CPT/HCPCS: 36415; 85610

== ENCOUNTER 2020-06-06 13:59 | Outpatient (CLI) | payer OTHER ==
[~2020-06-06 13:59] MED LIST changes: -WARF-18 PO; +WARF-246 PO
[2020-06-06 14:33] LABS: PROTHROMBIN TIME 17.8 secs (10.8-13.4)
== END 2020-06-06 20:37 | disposition home or self-care (01) ==
LOC: MLB 13:59
PROVIDERS: ATTEND Family Medicine
DX: I82.502 Chronic embolism and thrombosis of unspecified deep veins of left lower extremity (principal)
CPT/HCPCS: 36415; 85610

== ENCOUNTER 2020-07-05 08:30 | Outpatient (CLI) | payer OTHER ==
[2020-07-05 10:49] LABS: PROTHROMBIN TIME 16.9 secs (10.8-13.4)
== END 2020-07-05 21:25 | disposition home or self-care (01) ==
LOC: MLB 08:30
PROVIDERS: ATTEND Family Medicine
DX: I82.403 Acute embolism and thrombosis of unspecified deep veins of lower extremity, bilateral (principal)
CPT/HCPCS: 36415; 85610; 85730

== ENCOUNTER 2020-07-13 06:48 | Outpatient (CLI) | payer OTHER ==
[~2020-07-13 06:48] MED LIST changes: -WARF-246 PO; +[UNRECOGNIZED DRUG - CODE] PO
[2020-07-13 07:34] LABS: BASOPHILS % (AUTO) 0.6 % (0.0-2.0); EOSINOPHILS # (AUTO) 0.1 K/uL (0-0.4); HEMOGLOBIN 13.8 g/dL (12.0-16.0); LYMPHOCYTES # (AUTO) 1.4 K/uL (2.5-16.5); LYMPHOCYTES % (AUTO) 19.1 % (20.5-51.1); MEAN CORPUSCULAR HEMOGLOBIN 31 pg (27-31); MEAN CORPUSCULAR HGB CONC 33 g/dL (33-37); MEAN CORPUSCULAR VOLUME 95.4 fL (80-94); MONOCYTES # (AUTO) 0.5 K/uL (0.8-1.0); MONOCYTES % (AUTO) 6.9 % (1.7-9.3); NEUTROPHILS # (AUTO) 5.1 K/uL (1.8-7.7); NEUTROPHILS % (AUTO) 71.4 % (42.2-75.2); PLATELET COUNT (AUTO) 239 K/uL (140-450); RED CELL DISTRIBUTION WIDTH 16.5 % (11.6-13.7); WHITE BLOOD COUNT (AUTO) 7.1 K/uL (4.8-10.8)
[2020-07-13 08:02] LABS: ALBUMIN 3.8 g/dL (3.4-5.0); CARBON DIOXIDE 27.9 mmol/L (21-32); CHOL/HDL RATIO 3.5 (1-4.5); CREATININE 0.9 mg/dL (0.6-1.3); POTASSIUM 3.9 mmol/L (3.5-5.1); TOTAL BILIRUBIN 0.3 mg/dL (0.0-1.0)
== END 2020-07-13 20:19 | disposition home or self-care (01) ==
LOC: MLB 06:48
PROVIDERS: ATTEND Family Medicine
DX: E55.9 Vitamin D deficiency, unspecified (principal); I10 Essential (primary) hypertension; E55.0 Rickets, active
CPT/HCPCS: 36415; 80053; 82306; 85025

== ENCOUNTER 2020-09-26 08:56 | Outpatient (CLI) | payer OTHER ==
[~2020-09-26 08:56] MED LIST changes: +WARF-83 PO; -[UNRECOGNIZED DRUG - CODE] PO
[2020-09-26 10:37] LABS: PROTHROMBIN TIME 18.9 secs (10.8-13.4)
== END 2020-09-26 21:39 | disposition home or self-care (01) ==
LOC: MLB 08:56
PROVIDERS: ATTEND Family Medicine
DX: I82.593 Chronic embolism and thrombosis of other specified deep vein of lower extremity, bilateral (principal)
CPT/HCPCS: 36415; 85610

== ENCOUNTER 2020-12-30 08:30 | Outpatient (CLI) | payer OTHER ==
[2020-12-30 09:10] LABS: BASOPHILS # (AUTO) 0.1 K/uL (0.00-0.22); BASOPHILS % (AUTO) 0.8 % (0.0-2.0); EOSINOPHILS # (AUTO) 0.1 K/uL (0-0.4); EOSINOPHILS % (AUTO) 1.5 % (0.0-4.0); LYMPHOCYTES # (AUTO) 1.3 K/uL (2.5-16.5); LYMPHOCYTES % (AUTO) 19.6 % (20.5-51.1); MEAN CORPUSCULAR HEMOGLOBIN 31 pg (27-31); MEAN CORPUSCULAR HGB CONC 33 g/dL (33-37); MEAN CORPUSCULAR VOLUME 94.5 fL (80-94); MONOCYTES # (AUTO) 0.5 K/uL (0.8-1.0); MONOCYTES % (AUTO) 6.9 % (1.7-9.3); NEUTROPHILS # (AUTO) 4.8 K/uL (1.8-7.7); NEUTROPHILS % (AUTO) 71.2 % (42.2-75.2); PLATELET COUNT (AUTO) 213 K/uL (140-450); RED BLOOD CELL COUNT(AUTO) 4.55 MIL/uL (4.20-5.40); RED CELL DISTRIBUTION WIDTH 16.3 % (11.6-13.7); WHITE BLOOD COUNT (AUTO) 6.8 K/uL (4.8-10.8)
[2020-12-30 09:31] LABS: PROTHROMBIN TIME 20.5 secs (10.8-13.4)
[2020-12-30 09:43] LABS: ALBUMIN 3.7 g/dL (3.4-5.0); ANION GAP 9.2 (8-16); CARBON DIOXIDE 30.5 mmol/L (21-32); CHOL/HDL RATIO 3.3 (1-4.5); CREATININE 0.8 mg/dL (0.6-1.3); POTASSIUM 4.7 mmol/L (3.5-5.1); THYROID STIMULATING HORMONE 0.83 uIU/mL (0.34-3.74); TOTAL BILIRUBIN 0.3 mg/dL (0.0-1.0)
== END 2020-12-30 20:04 | disposition home or self-care (01) ==
LOC: MLB 08:30
PROVIDERS: ATTEND Family Medicine
DX: I82.503 Chronic embolism and thrombosis of unspecified deep veins of lower extremity, bilateral (principal)
CPT/HCPCS: 36415; 80053; 82306; 84443; 85025; 85610

== ENCOUNTER 2021-01-23 08:11 | Emergency (ER) | payer OTHER ==
[~2021-01-23] VITALS: Ht 170.2 cm; Wt 102.1 kg
--- NOTE | 2021-01-23 08:15 | NUR ---
PT AMBULATED TO BED 4.
--- NOTE | 2021-01-23 08:16 | NUR ---
Dr. Mann is evaluating the patient at bedside.
[2021-01-23 08:22] VITALS: BP 155/88
[2021-01-23 08:25] VITALS: BP 155/88
--- NOTE | 2021-01-23 08:33 | NUR ---
Patient taken to CT scan via wheelchair by tech.
[2021-01-23 08:34] LABS: BASOPHILS # (AUTO) 0.1 K/uL (0.00-0.22); BASOPHILS % (AUTO) 0.9 % (0.0-2.0); EOSINOPHILS # (AUTO) 0.1 K/uL (0-0.4); EOSINOPHILS % (AUTO) 1.5 % (0.0-4.0); HEMATOCRIT 42.1 % (36-48); HEMOGLOBIN 14.2 g/dL (12.0-16.0); LYMPHOCYTES # (AUTO) 1.4 K/uL (2.5-16.5); MEAN CORPUSCULAR HEMOGLOBIN 32 pg (27-31); MEAN CORPUSCULAR HGB CONC 34 g/dL (33-37); MEAN CORPUSCULAR VOLUME 93.2 fL (80-94); MONOCYTES # (AUTO) 0.7 K/uL (0.8-1.0); MONOCYTES % (AUTO) 8.7 % (1.7-9.3); NEUTROPHILS # (AUTO) 5.3 K/uL (1.8-7.7); NEUTROPHILS % (AUTO) 69.9 % (42.2-75.2); PLATELET COUNT (AUTO) 232 K/uL (140-450); RED BLOOD CELL COUNT(AUTO) 4.51 MIL/uL (4.20-5.40); RED CELL DISTRIBUTION WIDTH 15.9 % (11.6-13.7); WHITE BLOOD COUNT (AUTO) 7.6 K/uL (4.8-10.8)
--- NOTE | 2021-01-23 08:39 | NUR ---
Patient returned from CT scan.
[2021-01-23 08:59] LABS: PROTHROMBIN TIME 19.3 secs (10.8-13.4)
== END 2021-01-23 09:20 | disposition home or self-care (01) ==
LOC: MED 08:11
DX: S09.8XXA Other specified injuries of head, initial encounter (principal); J45.909 Unspecified asthma, uncomplicated; I10 Essential (primary) hypertension; F17.210 Nicotine dependence, cigarettes, uncomplicated; Z71.6 Tobacco abuse counseling; Z88.1 Allergy status to other antibiotic agents; Z91.040 Latex allergy status; W22.8XXA Striking against or struck by other objects, initial encounter; Y93.89 Activity, other specified; Y92.89 Other specified places as the place of occurrence of the external cause; Y99.8 Other external cause status
CPT/HCPCS: 36415; 70450; 85025; 85610; 99284

== ENCOUNTER 2021-03-24 07:13 | Outpatient (CLI) | payer OTHER ==
[2021-03-24 08:20] LABS: ALBUMIN 3.8 g/dL (3.4-5.0); CARBON DIOXIDE 26.4 mmol/L (21-32); CHOL/HDL RATIO 3.9 (1-4.5); CREATININE 0.9 mg/dL (0.6-1.3); POTASSIUM 4.4 mmol/L (3.5-5.1); TOTAL BILIRUBIN 0.3 mg/dL (0.0-1.0)
== END 2021-03-24 19:38 | disposition home or self-care (01) ==
LOC: MLB 07:13
PROVIDERS: ATTEND Family Medicine
DX: I10 Essential (primary) hypertension (principal); E55.9 Vitamin D deficiency, unspecified
CPT/HCPCS: 36415; 80053; 82272; 82306

== ENCOUNTER 2021-04-17 14:00 | Emergency (ER) | payer OTHER ==
[~2021-04-17] VITALS: Ht 170.2 cm; Wt 129.3 kg
[2021-04-17 14:07] VITALS: BP 120/77
--- NOTE | 2021-04-17 14:16 | NUR ---
SENT TO THE LOBBY
[2021-04-17] MEDS ORDERED: KETOROLAC 15 MG/ML VIAL IM ONE (14:45)
[2021-04-17] MEDS ORDERED: methocarbamoL 500 MG TAB PO SCH (14:45)
--- NOTE | 2021-04-17 15:02 | NUR ---
Patient ambulated to bed 7. RN evaluating the patient at bedside.
--- NOTE | 2021-04-17 15:24 | NUR ---
Dr. Bernabe is evaluating the patient at bedside.
[2021-04-17] MEDS ORDERED: METH-1681 PO (15:53)
--- NOTE | 2021-04-17 15:55 | NUR ---
PT UNABLE TO GIVE URINE AT THIS TIME
--- NOTE | 2021-04-17 16:00 | NUR ---
51 Y/O F BIB SELF FROM WORK, PATIENT PRESENTS TO ED WITH LOWER L BACK PAIN THAT STARTED GETTING WORSE 1 WEEK AGO. PT DENIES INJURY, FALL OR SYNCOPE. DENIES N/V/D; SKIN IS PINK/WARM/DRY; AAOX4 WITH EVEN AND STEADY GAIT; LUNGS CLEAR BL; HR EVEN AND REGULAR; PT DENIES ANY FEVER, CP, SOB, OR COUGH AT THIS TIME; PATIENT STATES PAIN OF 10/10 AT THIS TIME; VSS; PATIENT POSITIONED FOR COMFORT; HOB ELEVATED; BEDRAILS UP X2; BED DOWN. ER MD MADE AWARE OF PT STATUS. PMH: DVT, HTN, COPD, SCIATICA ALLERGY: LATEX, NIACIN (HIVES)
--- NOTE | 2021-04-17 16:31 | NUR ---
CALLED LAB TO [facility], [address] ON [address].
[2021-04-17 16:38] LABS: APPEARANCE,URINE CLEAR (CLEAR); BILIRUBIN,URINE NEGATIVE (NEGATIVE); BLOOD, URINE NEGATIVE (NEGATIVE); COLOR,URINE YELLOW (YELLOW); LEUKOCYTE ESTERASE ,URINE NEGATIVE (NEGATIVE); NITRITE, URINE NEGATIVE (NEGATIVE); PH,URINE 5.5 (5.0-9.0); UGLUCOSE NEGATIVE (NEGATIVE)
[2021-04-17] MEDS ORDERED: HYDROcodone/APAP 10/325 MG 1 TAB TAB PO ONE (16:40)
[2021-04-17] MEDS ORDERED: GABA-636 PO (16:42)
[2021-04-17] MEDS ORDERED: OXYC5CAP26 PO (16:42)
[2021-04-17 17:11] VITALS: BP 120/77
--- NOTE | 2021-04-17 17:12 | NUR ---
Patient discharged with v/s stable. Written and verbal after care instructions given and explained. Patient alert, oriented and verbalized understanding of instructions. Ambulatory with steady gait. All questions addressed prior to discharge. ID band removed. Patient advised to follow up with PMD. Rx of OXYCODONE given. Patient educated on indication of medication including possible reaction and side effects. Opportunity to ask questions provided and answered.
[2021-04-17 17:22] LABS: RBC,URINE 0-5 /HPF (0-5); WBC,URINE 0-5 /HPF (0-5)
== END 2021-04-17 17:12 | disposition home or self-care (01) ==
LOC: MED 14:00
DX: M54.42 Lumbago with sciatica, left side (principal); J45.909 Unspecified asthma, uncomplicated; I10 Essential (primary) hypertension; F17.210 Nicotine dependence, cigarettes, uncomplicated; Z98.890 Other specified postprocedural states; Z79.899 Other long term (current) drug therapy; Z88.8 Allergy status to other drugs, medicaments and biological substances; Z91.040 Latex allergy status
CPT/HCPCS: 81001; 96372; 99283; J1885; 81002

== ENCOUNTER 2021-07-07 08:34 | Outpatient (CLI) | payer OTHER ==
[~2021-07-07 08:34] MED LIST changes: +GABA-636 PO; +METH-1681 PO; +OXYC5CAP26 PO
[2021-07-07 09:11] LABS: BASOPHILS # (AUTO) 0.1 K/uL (0.00-0.22); BASOPHILS % (AUTO) 0.7 % (0.0-2.0); EOSINOPHILS # (AUTO) 0.1 K/uL (0-0.4); EOSINOPHILS % (AUTO) 1.5 % (0.0-4.0); HEMATOCRIT 44.9 % (36-48); HEMOGLOBIN 14.7 g/dL (12.0-16.0); LYMPHOCYTES # (AUTO) 1.2 K/uL (2.5-16.5); LYMPHOCYTES % (AUTO) 15.6 % (20.5-51.1); MEAN CORPUSCULAR HEMOGLOBIN 31 pg (27-31); MEAN CORPUSCULAR HGB CONC 33 g/dL (33-37); MEAN CORPUSCULAR VOLUME 95.1 fL (80-94); MONOCYTES # (AUTO) 0.5 K/uL (0.8-1.0); MONOCYTES % (AUTO) 6.3 % (1.7-9.3); NEUTROPHILS # (AUTO) 5.9 K/uL (1.8-7.7); NEUTROPHILS % (AUTO) 75.9 % (42.2-75.2); PLATELET COUNT (AUTO) 239 K/uL (140-450); RED BLOOD CELL COUNT(AUTO) 4.72 MIL/uL (4.20-5.40); WHITE BLOOD COUNT (AUTO) 7.7 K/uL (4.8-10.8)
[2021-07-07 09:27] LABS: ALBUMIN 3.7 g/dL (3.4-5.0); ANION GAP 11.4 (8-16); CARBON DIOXIDE 30.8 mmol/L (21-32); CHOL/HDL RATIO 3.7 (1-4.5); CREATININE 0.9 mg/dL (0.6-1.3); POTASSIUM 4.2 mmol/L (3.5-5.1); TOTAL BILIRUBIN 0.3 mg/dL (0.0-1.0)
[2021-07-07 09:31] LABS: PROTHROMBIN TIME 19.6 secs (10.8-13.4)
== END 2021-07-07 15:43 | disposition home or self-care (01) ==
LOC: MLB 08:34
PROVIDERS: ATTEND Family Medicine
DX: I10 Essential (primary) hypertension (principal); E55.9 Vitamin D deficiency, unspecified
CPT/HCPCS: 36415; 80053; 85025; 85610

== ENCOUNTER 2021-08-17 08:16 | Outpatient (CLI) | payer OTHER ==
[2021-08-17 09:11] LABS: PROTHROMBIN TIME 17.9 secs (10.8-13.4)
== END 2021-08-17 20:13 | disposition home or self-care (01) ==
LOC: MLB 08:16
PROVIDERS: ATTEND Family Medicine
DX: I82.502 Chronic embolism and thrombosis of unspecified deep veins of left lower extremity (principal)
CPT/HCPCS: 36415; 85610

== ENCOUNTER 2021-10-16 07:32 | Outpatient (CLI) | payer OTHER ==
[2021-10-16 09:23] LABS: PROTHROMBIN TIME 21.8 secs (10.8-13.4)
[2021-10-16 09:37] LABS: ALBUMIN 3.7 g/dL (3.4-5.0); ANION GAP 10.2 (8-16); CARBON DIOXIDE 28.9 mmol/L (21-32); CREATININE 0.8 mg/dL (0.6-1.3); POTASSIUM 4.1 mmol/L (3.5-5.1); TOTAL BILIRUBIN 0.3 mg/dL (0.0-1.0)
== END 2021-10-16 20:40 | disposition home or self-care (01) ==
LOC: MLB 07:32
PROVIDERS: ATTEND Family Medicine
DX: I10 Essential (primary) hypertension (principal); I82.592 Chronic embolism and thrombosis of other specified deep vein of left lower extremity
CPT/HCPCS: 36415; 80053; 82306; 83036; 85610

== ENCOUNTER 2022-02-24 07:25 | Outpatient (CLI) | payer OTHER ==
[2022-02-24 08:02] LABS: BASOPHILS # (AUTO) 0.1 K/uL (0.00-0.22); BASOPHILS % (AUTO) 0.8 % (0.0-2.0); EOSINOPHILS # (AUTO) 0.1 K/uL (0-0.4); EOSINOPHILS % (AUTO) 1.3 % (0.0-4.0); HEMATOCRIT 46.1 % (36-48); HEMOGLOBIN 15.2 g/dL (12.0-16.0); LYMPHOCYTES # (AUTO) 1.3 K/uL (2.5-16.5); LYMPHOCYTES % (AUTO) 16.8 % (20.5-51.1); MEAN CORPUSCULAR HEMOGLOBIN 31 pg (27-31); MEAN CORPUSCULAR HGB CONC 33 g/dL (33-37); MEAN CORPUSCULAR VOLUME 94.6 fL (80-94); MONOCYTES # (AUTO) 0.4 K/uL (0.8-1.0); MONOCYTES % (AUTO) 5.7 % (1.7-9.3); NEUTROPHILS % (AUTO) 75.4 % (42.2-75.2); PLATELET COUNT (AUTO) 242 K/uL (140-450); RED BLOOD CELL COUNT(AUTO) 4.87 MIL/uL (4.20-5.40); RED CELL DISTRIBUTION WIDTH 16.4 % (11.6-13.7); WHITE BLOOD COUNT (AUTO) 7.9 K/uL (4.8-10.8)
[2022-02-24 08:07] LABS: PROTHROMBIN TIME 22.9 secs (10.8-13.4)
[2022-02-24 08:21] LABS: ALBUMIN 3.7 g/dL (3.4-5.0); ANION GAP 9.6 (8-16); CARBON DIOXIDE 31.3 mmol/L (21-32); CHOL/HDL RATIO 3.8 (1-4.5); CREATININE 0.9 mg/dL (0.6-1.3); POTASSIUM 3.9 mmol/L (3.5-5.1); THYROID STIMULATING HORMONE 1.3 uIU/mL (0.34-3.74); TOTAL BILIRUBIN 0.3 mg/dL (0.0-1.0)
== END 2022-02-24 20:47 | disposition home or self-care (01) ==
LOC: MLB 07:25
PROVIDERS: ATTEND Family Medicine
DX: I10 Essential (primary) hypertension (principal)
CPT/HCPCS: 36415; 80053; 83036; 84443; 85025; 85610

== ENCOUNTER 2022-05-23 08:06 | Outpatient (CLI) | payer OTHER ==
[2022-05-23 08:43] LABS: ALBUMIN 3.7 g/dL (3.4-5.0); ANION GAP 14.5 (8-16); CARBON DIOXIDE 25.7 mmol/L (21-32); CHOL/HDL RATIO 3.2 (1-4.5); CREATININE 0.8 mg/dL (0.6-1.3); POTASSIUM 4.2 mmol/L (3.5-5.1); TOTAL BILIRUBIN 0.3 mg/dL (0.0-1.0)
[2022-05-23 08:48] LABS: BASOPHILS # (AUTO) 0.1 K/uL (0.00-0.22); BASOPHILS % (AUTO) 0.7 % (0.0-2.0); EOSINOPHILS # (AUTO) 0.1 K/uL (0-0.4); EOSINOPHILS % (AUTO) 1.7 % (0.0-4.0); HEMATOCRIT 43.8 % (36-48); HEMOGLOBIN 14.3 g/dL (12.0-16.0); LYMPHOCYTES # (AUTO) 1.6 K/uL (2.5-16.5); LYMPHOCYTES % (AUTO) 21.7 % (20.5-51.1); MEAN CORPUSCULAR HEMOGLOBIN 31 pg (27-31); MEAN CORPUSCULAR HGB CONC 33 g/dL (33-37); MEAN CORPUSCULAR VOLUME 93.5 fL (80-94); MONOCYTES # (AUTO) 0.4 K/uL (0.8-1.0); MONOCYTES % (AUTO) 6.1 % (1.7-9.3); NEUTROPHILS % (AUTO) 69.8 % (42.2-75.2); PLATELET COUNT (AUTO) 192 K/uL (140-450); RED BLOOD CELL COUNT(AUTO) 4.68 MIL/uL (4.20-5.40); RED CELL DISTRIBUTION WIDTH 15.9 % (11.6-13.7); WHITE BLOOD COUNT (AUTO) 7.2 K/uL (4.8-10.8)
== END 2022-05-23 21:09 | disposition home or self-care (01) ==
LOC: MLB 08:06
PROVIDERS: ATTEND Family Medicine
DX: I10 Essential (primary) hypertension (principal); E78.2 Mixed hyperlipidemia; R73.03 Prediabetes
CPT/HCPCS: 36415; 80053; 83036; 85025

== ENCOUNTER 2022-08-22 07:44 | Outpatient (CLI) | payer OTHER ==
[2022-08-22 09:03] LABS: BASOPHILS # (AUTO) 0.1 K/uL (0.00-0.22); BASOPHILS % (AUTO) 0.8 % (0.0-2.0); EOSINOPHILS # (AUTO) 0.1 K/uL (0-0.4); EOSINOPHILS % (AUTO) 2.2 % (0.0-4.0); HEMATOCRIT 41.5 % (36-48); LYMPHOCYTES # (AUTO) 1.5 K/uL (2.5-16.5); MEAN CORPUSCULAR HEMOGLOBIN 32 pg (27-31); MEAN CORPUSCULAR HGB CONC 34 g/dL (33-37); MEAN CORPUSCULAR VOLUME 94.1 fL (80-94); MONOCYTES # (AUTO) 0.5 K/uL (0.8-1.0); MONOCYTES % (AUTO) 7.1 % (1.7-9.3); NEUTROPHILS # (AUTO) 4.4 K/uL (1.8-7.7); NEUTROPHILS % (AUTO) 66.9 % (42.2-75.2); PLATELET COUNT (AUTO) 221 K/uL (140-450); RED BLOOD CELL COUNT(AUTO) 4.41 MIL/uL (4.20-5.40); RED CELL DISTRIBUTION WIDTH 16.1 % (11.6-13.7); WHITE BLOOD COUNT (AUTO) 6.6 K/uL (4.8-10.8)
[2022-08-22 09:12] LABS: ALBUMIN 3.7 g/dL (3.4-5.0); CARBON DIOXIDE 31.5 mmol/L (21-32); CREATININE 0.7 mg/dL (0.6-1.3); TOTAL BILIRUBIN 0.4 mg/dL (0.0-1.0)
[2022-08-22 09:18] LABS: ANION GAP 5.8 (8-16); POTASSIUM 4.3 mmol/L (3.5-5.1)
[2022-08-23 15:06] LABS: MICROALBUMIN, UR RANDOM <3.0 ug/mL (Not Estab.)
== END 2022-08-22 21:06 | disposition home or self-care (01) ==
LOC: MLB 07:44
PROVIDERS: ATTEND Family Medicine
DX: Z12.11 Encounter for screening for malignant neoplasm of colon (principal); I82.402 Acute embolism and thrombosis of unspecified deep veins of left lower extremity; E11.9 Type 2 diabetes mellitus without complications
CPT/HCPCS: 36415; 80053; 82043; 82272; 83036; 85025; 85610

== ENCOUNTER 2022-09-15 11:14 | Emergency (ER) | payer OTHER ==
[~2022-09-15] VITALS: Ht 170.2 cm; Wt 123.8 kg
[2022-09-15 11:20] VITALS: BP 108/66
[2022-09-15] MEDS: KETOROLAC 60 MG/2 ML VIAL IM ONE (12:01)
[2022-09-15] MEDS: DIPHENOXYLATE /ATROPINE 2.5 MG TAB PO ONE (12:01)
[2022-09-15] MEDS: ONDANSETRON 4 MG ODT PO ONE (12:01)
[2022-09-15 12:27] LABS: BASOPHILS % (AUTO) 0.4 % (0.0-2.0); EOSINOPHILS % (AUTO) 0.3 % (0.0-4.0); HEMATOCRIT 42.3 % (36-48); HEMOGLOBIN 13.9 g/dL (12.0-16.0); LYMPHOCYTES # (AUTO) 0.8 K/uL (2.5-16.5); LYMPHOCYTES % (AUTO) 21.1 % (20.5-51.1); MEAN CORPUSCULAR HEMOGLOBIN 31 pg (27-31); MEAN CORPUSCULAR HGB CONC 33 g/dL (33-37); MEAN CORPUSCULAR VOLUME 93.9 fL (80-94); MONOCYTES # (AUTO) 0.4 K/uL (0.8-1.0); MONOCYTES % (AUTO) 9.8 % (1.7-9.3); NEUTROPHILS # (AUTO) 2.7 K/uL (1.8-7.7); NEUTROPHILS % (AUTO) 68.4 % (42.2-75.2); PLATELET COUNT (AUTO) 188 K/uL (140-450); RED CELL DISTRIBUTION WIDTH 15.7 % (11.6-13.7)
[2022-09-15 12:37] LABS: ALBUMIN 3.4 g/dL (3.4-5.0); ANION GAP 13.7 (8-16); CARBON DIOXIDE 27.9 mmol/L (21-32); CREATININE 1.2 mg/dL (0.6-1.3); POTASSIUM 3.6 mmol/L (3.5-5.1); TOTAL BILIRUBIN 0.4 mg/dL (0.0-1.0)
[2022-09-15] MEDS ORDERED: ONDA-188 SL (12:58)
[2022-09-15] MEDS ORDERED: ATRO1TAB PO (12:58)
[2022-09-15 14:05] VITALS: BP 128/80
--- NOTE | 2022-09-15 14:05 | NUR ---
Patient discharged with v/s stable. Written and verbal after care instructions given and explained. Patient alert, oriented and verbalized understanding of instructions. Ambulatory with steady gait. All questions addressed prior to discharge. ID band removed. Patient advised to follow up with PMD. Rx of LOMITIL,ZOFRAN given. Patient educated on indication of medication including possible reaction and side effects. Opportunity to ask questions provided and answered.
== END 2022-09-15 14:05 | disposition home or self-care (01) ==
LOC: MED 11:14
DX: K52.9 Noninfective gastroenteritis and colitis, unspecified (principal); R11.0 Nausea; R19.7 Diarrhea, unspecified; J44.9 Chronic obstructive pulmonary disease, unspecified; I10 Essential (primary) hypertension; Z79.899 Other long term (current) drug therapy; Z88.8 Allergy status to other drugs, medicaments and biological substances; Z91.040 Latex allergy status
CPT/HCPCS: 36415; 80053; 83690; 85025; 96372; 99283; J1885; Q0162

== ENCOUNTER 2022-11-15 08:25 | Outpatient (CLI) | payer OTHER ==
[~2022-11-15 08:25] MED LIST changes: +ATRO1TAB PO; +ONDA-188 SL
[2022-11-15 09:15] LABS: BASOPHILS # (AUTO) 0.1 K/uL (0.00-0.22); BASOPHILS % (AUTO) 1.3 % (0.0-2.0); EOSINOPHILS # (AUTO) 0.2 K/uL (0-0.4); EOSINOPHILS % (AUTO) 2.2 % (0.0-4.0); HEMOGLOBIN 13.8 g/dL (12.0-16.0); LYMPHOCYTES # (AUTO) 1.6 K/uL (2.5-16.5); LYMPHOCYTES % (AUTO) 22.6 % (20.5-51.1); MEAN CORPUSCULAR HEMOGLOBIN 31 pg (27-31); MEAN CORPUSCULAR HGB CONC 34 g/dL (33-37); MONOCYTES # (AUTO) 0.4 K/uL (0.8-1.0); MONOCYTES % (AUTO) 5.7 % (1.7-9.3); NEUTROPHILS # (AUTO) 4.9 K/uL (1.8-7.7); NEUTROPHILS % (AUTO) 68.2 % (42.2-75.2); PLATELET COUNT (AUTO) 222 K/uL (140-450); RED CELL DISTRIBUTION WIDTH 15.7 % (11.6-13.7); WHITE BLOOD COUNT (AUTO) 7.2 K/uL (4.8-10.8)
[2022-11-15 09:45] LABS: PROTHROMBIN TIME 19.8 secs (10.8-13.4)
[2022-11-15 09:59] LABS: ALBUMIN 4.4 g/dL (3.4-5.0); ANION GAP 13.7 (8-16); CARBON DIOXIDE 29.2 mmol/L (21-32); CHOL/HDL RATIO 3.4 (1-4.5); CREATININE 0.8 mg/dL (0.6-1.3); POTASSIUM 3.9 mmol/L (3.5-5.1); TOTAL BILIRUBIN 0.3 mg/dL (0.0-1.0)
== END 2022-11-15 20:11 | disposition home or self-care (01) ==
LOC: MLB 08:25
PROVIDERS: ATTEND Family Medicine
DX: I10 Essential (primary) hypertension (principal); E11.9 Type 2 diabetes mellitus without complications; I82.402 Acute embolism and thrombosis of unspecified deep veins of left lower extremity
CPT/HCPCS: 36415; 80053; 83036; 85025; 85610

== ENCOUNTER 2022-11-23 08:34 | Outpatient (CLI) | payer OTHER | END 2022-11-23 19:55 | disposition home or self-care (01) | LOC: MUS 08:34 | PROVIDERS: ATTEND Family Medicine | DX: R16.0 Hepatomegaly, not elsewhere classified (principal); R10.9 Unspecified abdominal pain | CPT/HCPCS: 76700 ==

== ENCOUNTER 2023-02-06 08:37 | Outpatient (CLI) | payer OTHER ==
[2023-02-06 09:00] LABS: BASOPHILS # (AUTO) 0.1 K/uL (0.00-0.22); BASOPHILS % (AUTO) 0.9 % (0.0-2.0); EOSINOPHILS # (AUTO) 0.1 K/uL (0-0.4); EOSINOPHILS % (AUTO) 1.9 % (0.0-4.0); HEMATOCRIT 40.6 % (36-48); HEMOGLOBIN 13.7 g/dL (12.0-16.0); LYMPHOCYTES # (AUTO) 1.4 K/uL (2.5-16.5); LYMPHOCYTES % (AUTO) 20.6 % (20.5-51.1); MEAN CORPUSCULAR HEMOGLOBIN 32 pg (27-31); MEAN CORPUSCULAR HGB CONC 34 g/dL (33-37); MEAN CORPUSCULAR VOLUME 94.5 fL (80-94); MONOCYTES # (AUTO) 0.5 K/uL (0.8-1.0); MONOCYTES % (AUTO) 7.1 % (1.7-9.3); NEUTROPHILS # (AUTO) 4.7 K/uL (1.8-7.7); NEUTROPHILS % (AUTO) 69.5 % (42.2-75.2); PLATELET COUNT (AUTO) 206 K/uL (140-450); WHITE BLOOD COUNT (AUTO) 6.8 K/uL (4.8-10.8)
[2023-02-06 09:40] LABS: PROTHROMBIN TIME 16.6 secs (10.8-13.4)
[2023-02-06 10:05] LABS: ALBUMIN 3.8 g/dL (3.4-5.0); ANION GAP 12.7 (8-16); CARBON DIOXIDE 28.5 mmol/L (21-32); CHOL/HDL RATIO 3.1 (1-4.5); CREATININE 0.8 mg/dL (0.6-1.3); POTASSIUM 4.2 mmol/L (3.5-5.1); TOTAL BILIRUBIN 0.3 mg/dL (0.0-1.0)
== END 2023-02-06 20:30 | disposition home or self-care (01) ==
LOC: MDS 08:37
PROVIDERS: ATTEND Family Medicine
DX: I10 Essential (primary) hypertension (principal); R73.03 Prediabetes
CPT/HCPCS: 36415; 80053; 83036; 85025; 85610

== ENCOUNTER 2023-05-03 07:23 | Outpatient (CLI) | payer OTHER ==
[~2023-05-03 07:23] MED LIST changes: -LOSA100T51 PO; +LOSA100T52 PO
[2023-05-03 08:22] LABS: BASOPHILS # (AUTO) 0.1 K/uL (0.00-0.22); BASOPHILS % (AUTO) 0.9 % (0.0-2.0); EOSINOPHILS # (AUTO) 0.2 K/uL (0-0.4); HEMATOCRIT 43.4 % (36-48); HEMOGLOBIN 14.4 g/dL (12.0-16.0); LYMPHOCYTES # (AUTO) 1.4 K/uL (2.5-16.5); MEAN CORPUSCULAR HEMOGLOBIN 31 pg (27-31); MEAN CORPUSCULAR HGB CONC 33 g/dL (33-37); MEAN CORPUSCULAR VOLUME 93.9 fL (80-94); MONOCYTES # (AUTO) 0.5 K/uL (0.8-1.0); MONOCYTES % (AUTO) 6.7 % (1.7-9.3); NEUTROPHILS # (AUTO) 5.8 K/uL (1.8-7.7); NEUTROPHILS % (AUTO) 72.4 % (42.2-75.2); PLATELET COUNT (AUTO) 220 K/uL (140-450); RED BLOOD CELL COUNT(AUTO) 4.62 MIL/uL (4.20-5.40); RED CELL DISTRIBUTION WIDTH 15.9 % (11.6-13.7)
[2023-05-03 08:31] LABS: PROTHROMBIN TIME 20.2 secs (10.8-13.4)
[2023-05-03 08:32] LABS: ALBUMIN 3.8 g/dL (3.4-5.0); ANION GAP 10.2 (8-16); CREATININE 0.9 mg/dL (0.6-1.3); POTASSIUM 4.2 mmol/L (3.5-5.1); TOTAL BILIRUBIN 0.5 mg/dL (0.0-1.0)
== END 2023-05-03 21:55 | disposition home or self-care (01) ==
LOC: MLB 07:23
PROVIDERS: ATTEND Family Medicine
DX: Z12.2 Encounter for screening for malignant neoplasm of respiratory organs (principal); I10 Essential (primary) hypertension; I82.402 Acute embolism and thrombosis of unspecified deep veins of left lower extremity; I25.10 Atherosclerotic heart disease of native coronary artery without angina pectoris; I70.0 Atherosclerosis of aorta
CPT/HCPCS: 36415; 71250; 80053; 83036; 85025; 85610

== ENCOUNTER 2023-06-07 23:06 | Emergency (ER) | payer OTHER ==
[~2023-06-07] VITALS: Ht 170.2 cm; Wt 129.3 kg
[2023-06-07 23:09] VITALS: BP 141/85; PULSE 94; RESP 16; TEMP 96.9
[2023-06-07 23:38] VITALS: TEMP 96.9
[2023-06-08] MEDS ORDERED: FUROSEMIDE 40 MG/4 ML VIAL IVP SCH (01:50)
[2023-06-08 02:19] LABS: BASOPHILS # (AUTO) 0.1 K/uL (0.00-0.22); BASOPHILS % (AUTO) 0.8 % (0.0-2.0); EOSINOPHILS # (AUTO) 0.1 K/uL (0-0.4); EOSINOPHILS % (AUTO) 1.2 % (0.0-4.0); HEMATOCRIT 44.5 % (36-48); HEMOGLOBIN 14.8 g/dL (12.0-16.0); LYMPHOCYTES % (AUTO) 19.7 % (20.5-51.1); MEAN CORPUSCULAR HEMOGLOBIN 31 pg (27-31); MEAN CORPUSCULAR HGB CONC 33 g/dL (33-37); MEAN CORPUSCULAR VOLUME 94.4 fL (80-94); MONOCYTES # (AUTO) 0.6 K/uL (0.8-1.0); MONOCYTES % (AUTO) 6.4 % (1.7-9.3); NEUTROPHILS # (AUTO) 7.1 K/uL (1.8-7.7); NEUTROPHILS % (AUTO) 71.9 % (42.2-75.2); PLATELET COUNT (AUTO) 257 K/uL (140-450); RED BLOOD CELL COUNT(AUTO) 4.71 MIL/uL (4.20-5.40); RED CELL DISTRIBUTION WIDTH 16.4 % (11.6-13.7); WHITE BLOOD COUNT (AUTO) 9.9 K/uL (4.8-10.8)
[2023-06-08 02:31] LABS: ALBUMIN 3.7 g/dL (3.4-5.0); ANION GAP 8.7 (8-16); CALCIUM 9.1 mg/dL (8.5-10.1); CARBON DIOXIDE 30.6 mmol/L (21-32); CREATININE 0.9 mg/dL (0.6-1.3); POTASSIUM 4.3 mmol/L (3.5-5.1); TOTAL BILIRUBIN 0.2 mg/dL (0.0-1.0); TOTAL PROTEIN, SERUM 7.4 g/dL (6.4-8.2)
[2023-06-08] MEDS ORDERED: BACI-418 TP (03:26)
[2023-06-08 04:00] VITALS: BP 149/75; PULSE 78; RESP 17; O2SAT 99
== END 2023-06-08 04:00 | disposition home or self-care (01) ==
LOC: MED 23:06
DX: R60.9 Edema, unspecified (principal); J44.9 Chronic obstructive pulmonary disease, unspecified; I11.9 Hypertensive heart disease without heart failure; E11.9 Type 2 diabetes mellitus without complications; Z79.899 Other long term (current) drug therapy; Z91.040 Latex allergy status
CPT/HCPCS: 36415; 71045; 80053; 85025; 96374; 99284; J1940; Q0092; 99285

== ENCOUNTER 2023-08-28 09:02 | Outpatient (CLI) | payer OTHER ==
[~2023-08-28 09:02] MED LIST changes: +BACI-418 TP
[2023-08-28 09:27] LABS: BASOPHILS # (AUTO) 0.1 K/uL (0.00-0.22); BASOPHILS % (AUTO) 0.7 % (0.0-2.0); EOSINOPHILS # (AUTO) 0.2 K/uL (0-0.4); EOSINOPHILS % (AUTO) 2.5 % (0.0-4.0); HEMATOCRIT 44.6 % (36-48); HEMOGLOBIN 14.7 g/dL (12.0-16.0); LYMPHOCYTES # (AUTO) 1.6 K/uL (2.5-16.5); LYMPHOCYTES % (AUTO) 19.4 % (20.5-51.1); MEAN CORPUSCULAR HEMOGLOBIN 31 pg (27-31); MEAN CORPUSCULAR HGB CONC 33 g/dL (33-37); MEAN CORPUSCULAR VOLUME 93.1 fL (80-94); MONOCYTES # (AUTO) 0.5 K/uL (0.8-1.0); MONOCYTES % (AUTO) 6.2 % (1.7-9.3); NEUTROPHILS # (AUTO) 5.7 K/uL (1.8-7.7); NEUTROPHILS % (AUTO) 71.2 % (42.2-75.2); PLATELET COUNT (AUTO) 217 K/uL (140-450); RED BLOOD CELL COUNT(AUTO) 4.79 MIL/uL (4.20-5.40); RED CELL DISTRIBUTION WIDTH 16.4 % (11.6-13.7); WHITE BLOOD COUNT (AUTO) 8.1 K/uL (4.8-10.8)
[2023-08-28 09:40] LABS: INR 2.82 (0.8-1.2); PARTIAL THROMBOPLASTIN TIME 43.7 secs (22-35.6); PROTHROMBIN TIME 28.1 secs (10.8-13.4)
[2023-08-28 09:41] LABS: ALBUMIN 3.9 g/dL (3.4-5.0); ANION GAP 7.2 (8-16); CALCIUM 9.2 mg/dL (8.5-10.1); CARBON DIOXIDE 33.2 mmol/L (21-32); CREATININE 0.8 mg/dL (0.6-1.3); POTASSIUM 4.4 mmol/L (3.5-5.1); TOTAL BILIRUBIN 0.4 mg/dL (0.0-1.0); TOTAL PROTEIN, SERUM 7.4 g/dL (6.4-8.2)
== END 2023-08-28 21:40 | disposition home or self-care (01) ==
LOC: MLB 09:02
PROVIDERS: ATTEND Family Medicine
DX: I10 Essential (primary) hypertension (principal); R73.03 Prediabetes
CPT/HCPCS: 36415; 80053; 82272; 83036; 85025; 85610; 85730

== ENCOUNTER 2023-09-08 10:34 | Emergency (ER) | payer OTHER ==
[~2023-09-08] VITALS: Ht 170.2 cm; Wt 129.3 kg
[2023-09-08 10:40] VITALS: BP 112/62; PULSE 123; RESP 17; TEMP 98.6; O2SAT 90
[2023-09-08] MEDS ORDERED: KETOROLAC 30 MG/ML VIAL IVP ONE (10:50)
[2023-09-08] MEDS ORDERED: NACL 0.9% 1,000 ML IV ONE (10:50)
[2023-09-08 11:10] VITALS: O2SAT 94
[2023-09-08 12:51] LABS: FLU A ANTIGEN negative (NEGATIVE); FLU B ANTIGEN NEGATIVE (NEGATIVE)
[2023-09-08 13:22] LABS: BASOPHILS % (AUTO) 0.4 % (0.0-2.0); EOSINOPHILS # (AUTO) 0.1 K/uL (0-0.4); EOSINOPHILS % (AUTO) 1.3 % (0.0-4.0); HEMOGLOBIN 13.8 g/dL (12.0-16.0); LYMPHOCYTES # (AUTO) 1.8 K/uL (2.5-16.5); LYMPHOCYTES % (AUTO) 14.9 % (20.5-51.1); MEAN CORPUSCULAR HEMOGLOBIN 30 pg (27-31); MEAN CORPUSCULAR HGB CONC 33 g/dL (33-37); MEAN CORPUSCULAR VOLUME 92.3 fL (80-94); MONOCYTES % (AUTO) 8.1 % (1.7-9.3); NEUTROPHILS # (AUTO) 8.8 K/uL (1.8-7.7); NEUTROPHILS % (AUTO) 75.3 % (42.2-75.2); PLATELET COUNT (AUTO) 234 K/uL (140-450); RED BLOOD CELL COUNT(AUTO) 4.55 MIL/uL (4.20-5.40); RED CELL DISTRIBUTION WIDTH 16.8 % (11.6-13.7); WHITE BLOOD COUNT (AUTO) 11.7 K/uL (4.8-10.8)
[2023-09-08 13:32] VITALS: O2SAT 90
[2023-09-08 13:49] LABS: ALBUMIN 3.6 g/dL (3.4-5.0); ANION GAP 10.7 (8-16); CARBON DIOXIDE 29.1 mmol/L (21-32); CREATININE 1.4 mg/dL (0.6-1.3); POTASSIUM 3.8 mmol/L (3.5-5.1); TOTAL BILIRUBIN 0.4 mg/dL (0.0-1.0)
[2023-09-08] MEDS ORDERED: predniSONE 20 MG TAB PO ONE (14:35)
[2023-09-08] MEDS ORDERED: ALBUTEROL SULFATE/IPRATROPIU 3 ML SOL IH ONE (14:35)
[2023-09-08] MEDS ORDERED: ALBU0.0912 INH (14:53)
[2023-09-08] MEDS ORDERED: PRED20TA5 PO (14:53)
[2023-09-08] MEDS ORDERED: DEXT118S25 PO (14:53)
[2023-09-08] MEDS ORDERED: BENZ200C4 PO (14:53)
[2023-09-08 14:56] VITALS: PULSE 88; RESP 20; O2SAT 94
[2023-09-08 15:33] VITALS: PULSE 87; RESP 17
== END 2023-09-08 15:32 | disposition home or self-care (01) ==
LOC: MED 10:34
DX: R05.9 Cough, unspecified (principal); Z20.822 Contact with and (suspected) exposure to COVID-19; R06.02 Shortness of breath; J45.909 Unspecified asthma, uncomplicated; I11.9 Hypertensive heart disease without heart failure; E11.9 Type 2 diabetes mellitus without complications; Z79.4 Long term (current) use of insulin; Z91.040 Latex allergy status; Z79.899 Other long term (current) drug therapy
CPT/HCPCS: 36415; 71045; 80053; 83880; 84484; 85025; 85379; 87426; 87804; 93005; 94640; 96360; 96372; 99285; J1885; J7030; J7512

== ENCOUNTER 2023-10-20 14:23 | Emergency (ER) | payer OTHER ==
[~2023-10-20] VITALS: Ht 170.2 cm; Wt 128.4 kg
[~2023-10-20 14:23] MED LIST changes: +ALBU0.0912 INH; +BENZ200C4 PO; +DEXT118S25 PO; +PRED20TA5 PO
[2023-10-20 14:37] VITALS: BP 106/94; PULSE 106; RESP 20; TEMP 97.8; O2SAT 94
[2023-10-20] MEDS ORDERED: HYD1C TP (15:17)
[2023-10-20] MEDS ORDERED: CEPH-588 PO (15:17)
== END 2023-10-20 15:22 | disposition home or self-care (01) ==
LOC: MED 14:23
DX: I87.2 Venous insufficiency (chronic) (peripheral) (principal); L03.116 Cellulitis of left lower limb; I11.9 Hypertensive heart disease without heart failure; J45.909 Unspecified asthma, uncomplicated; J44.9 Chronic obstructive pulmonary disease, unspecified; Z91.040 Latex allergy status; Z79.899 Other long term (current) drug therapy; Z88.8 Allergy status to other drugs, medicaments and biological substances
CPT/HCPCS: 82948; 99283

== ENCOUNTER 2023-12-11 09:40 | Outpatient (CLI) | payer OTHER ==
[~2023-12-11 09:40] MED LIST changes: +CEPH-588 PO; +HYD1C TP
[2023-12-11 10:14] LABS: BASOPHILS # (AUTO) 0.1 K/uL (0.00-0.22); BASOPHILS % (AUTO) 0.8 % (0.0-2.0); EOSINOPHILS # (AUTO) 0.2 K/uL (0-0.4); EOSINOPHILS % (AUTO) 2.1 % (0.0-4.0); HEMATOCRIT 41.2 % (36-48); LYMPHOCYTES # (AUTO) 1.6 K/uL (2.5-16.5); LYMPHOCYTES % (AUTO) 18.7 % (20.5-51.1); MEAN CORPUSCULAR HEMOGLOBIN 32 pg (27-31); MEAN CORPUSCULAR HGB CONC 34 g/dL (33-37); MEAN CORPUSCULAR VOLUME 92.3 fL (80-94); MONOCYTES # (AUTO) 0.5 K/uL (0.8-1.0); MONOCYTES % (AUTO) 5.6 % (1.7-9.3); NEUTROPHILS % (AUTO) 72.8 % (42.2-75.2); PLATELET COUNT (AUTO) 214 K/uL (140-450); RED BLOOD CELL COUNT(AUTO) 4.46 MIL/uL (4.20-5.40); RED CELL DISTRIBUTION WIDTH 16.2 % (11.6-13.7); WHITE BLOOD COUNT (AUTO) 8.3 K/uL (4.8-10.8)
[2023-12-11 10:28] LABS: INR 2.21 (0.8-1.2); PROTHROMBIN TIME 22.4 secs (10.8-13.4)
[2023-12-11 10:34] LABS: ALBUMIN 3.5 g/dL (3.4-5.0); ANION GAP 10.4 (8-16); CARBON DIOXIDE 28.6 mmol/L (21-32); CHOL/HDL RATIO 3.1 (1-4.5); CREATININE 0.8 mg/dL (0.6-1.3); TOTAL BILIRUBIN 0.3 mg/dL (0.0-1.0); TOTAL PROTEIN, SERUM 7.8 g/dL (6.4-8.2)
[2023-12-12 16:15] LABS: HEMOGLOBIN A1C 6.6 % (4.8-5.6)
[2023-12-12 16:16] LABS: VITAMIN D, 25-HYDROXY 26.1 ng/mL (30.0-100.0)
== END 2023-12-11 20:26 | disposition home or self-care (01) ==
LOC: MLB 09:40
PROVIDERS: ATTEND Family Medicine
DX: I10 Essential (primary) hypertension (principal); R73.03 Prediabetes
CPT/HCPCS: 36415; 80053; 82306; 83036; 85025; 85610

== ENCOUNTER 2023-12-23 09:05 | Outpatient (CLI) | payer OTHER | END 2023-12-23 20:58 | disposition home or self-care (01) | LOC: MCT 09:05 | PROVIDERS: ATTEND Obstetrics & Gynecology | DX: K76.0 Fatty (change of) liver, not elsewhere classified (principal); R10.2 Pelvic and perineal pain; K76.89 Other specified diseases of liver; K57.30 Diverticulosis of large intestine without perforation or abscess without bleeding; I70.0 Atherosclerosis of aorta ==

== ENCOUNTER 2024-01-05 11:06 | Outpatient (CLI) | payer OTHER ==
[2024-01-06 08:08] LABS: ESTRADIOL SERUM <5.0 pg/mL (.); FOLLICLE STIMULATING HORMONE 21.7 mIU/mL (.); PROGESTERONE 0.1 ng/mL (.); TESTOSTERONE,TOTAL 20 ng/dL (4-50); THYROID PEROXIDASE (TPO) AB <9 IU/mL (0-34); TRIIODOTHYRONINE FREE 2.9 pg/mL (2.0-4.4)
== END 2024-01-06 22:26 | disposition home or self-care (01) ==
LOC: MLB 11:06
PROVIDERS: ATTEND Obstetrics & Gynecology
DX: R93.89 Abnormal findings on diagnostic imaging of other specified body structures (principal)
CPT/HCPCS: 36415; 82607; 82670; 82746; 83001; 84144; 84403; 84443; 84481; 86376

== ENCOUNTER 2024-03-26 07:54 | Outpatient (CLI) | payer OTHER ==
[~2024-03-26 07:54] MED LIST changes: -OXYC5CAP26 PO; +OXYC5CAP36 PO
[2024-03-26 08:34] LABS: BASOPHILS # (AUTO) 0.1 K/uL (0.00-0.22); BASOPHILS % (AUTO) 0.7 % (0.0-2.0); EOSINOPHILS # (AUTO) 0.2 K/uL (0-0.4); HEMATOCRIT 42.9 % (36-48); HEMOGLOBIN 14.6 g/dL (12.0-16.0); LYMPHOCYTES # (AUTO) 1.3 K/uL (2.5-16.5); MEAN CORPUSCULAR HEMOGLOBIN 32 pg (27-31); MEAN CORPUSCULAR HGB CONC 34 g/dL (33-37); MEAN CORPUSCULAR VOLUME 93.8 fL (80-94); MONOCYTES # (AUTO) 0.4 K/uL (0.8-1.0); MONOCYTES % (AUTO) 5.1 % (1.7-9.3); NEUTROPHILS # (AUTO) 6.4 K/uL (1.8-7.7); NEUTROPHILS % (AUTO) 76.2 % (42.2-75.2); PLATELET COUNT (AUTO) 234 K/uL (140-450); RED BLOOD CELL COUNT(AUTO) 4.57 MIL/uL (4.20-5.40); RED CELL DISTRIBUTION WIDTH 16.8 % (11.6-13.7); WHITE BLOOD COUNT (AUTO) 8.4 K/uL (4.8-10.8)
[2024-03-26 09:16] LABS: INR 2.01 (0.8-1.2); PROTHROMBIN TIME 20.4 secs (10.8-13.4)
[2024-03-26 09:29] LABS: ANION GAP 10.2 (8-16); CALCIUM 9.8 mg/dL (8.5-10.1); CARBON DIOXIDE 30.6 mmol/L (21-32); CREATININE 0.8 mg/dL (0.6-1.3); POTASSIUM 3.8 mmol/L (3.5-5.1); TOTAL BILIRUBIN 0.4 mg/dL (0.0-1.0); TOTAL PROTEIN, SERUM 7.4 g/dL (6.4-8.2)
== END 2024-03-26 20:27 | disposition home or self-care (01) ==
LOC: MLB 07:54
PROVIDERS: ATTEND Family Medicine
DX: E11.9 Type 2 diabetes mellitus without complications (principal)
CPT/HCPCS: 36415; 80053; 82043; 83036; 85025; 85610

== ENCOUNTER 2024-05-01 09:26 | Emergency (ER) | payer OTHER ==
[~2024-05-01] VITALS: Ht 170.2 cm; Wt 129.3 kg
[2024-05-01 09:47] VITALS: BP 136/78; PULSE 115; RESP 18; TEMP 97.9; O2SAT 94
[2024-05-01] MEDS ORDERED: IBUP-1842 PO (10:21)
[2024-05-01 10:26] VITALS: BP 136/78; PULSE 101; RESP 18; TEMP 97.9; O2SAT 95
== END 2024-05-01 10:26 | disposition home or self-care (01) ==
LOC: MED 09:26
DX: L03.116 Cellulitis of left lower limb (principal); J44.9 Chronic obstructive pulmonary disease, unspecified; E11.9 Type 2 diabetes mellitus without complications; I10 Essential (primary) hypertension; Z86.79 Personal history of other diseases of the circulatory system; Z79.1 Long term (current) use of non-steroidal anti-inflammatories (NSAID); Z79.2 Long term (current) use of antibiotics; Z79.899 Other long term (current) drug therapy; Z91.040 Latex allergy status; Z88.1 Allergy status to other antibiotic agents
CPT/HCPCS: 99283

== ENCOUNTER 2024-06-24 08:23 | Outpatient (CLI) | payer OTHER ==
[~2024-06-24 08:23] MED LIST changes: +IBUP-1842 PO
[2024-06-24 08:59] LABS: BASOPHILS % (AUTO) 0.6 % (0.0-2.0); EOSINOPHILS # (AUTO) 0.1 K/uL (0-0.4); EOSINOPHILS % (AUTO) 1.3 % (0.0-4.0); HEMATOCRIT 43.4 % (36-48); HEMOGLOBIN 14.3 g/dL (12.0-16.0); LYMPHOCYTES # (AUTO) 1.6 K/uL (2.5-16.5); MEAN CORPUSCULAR HEMOGLOBIN 31 pg (27-31); MEAN CORPUSCULAR HGB CONC 33 g/dL (33-37); MEAN CORPUSCULAR VOLUME 92.6 fL (80-94); MONOCYTES # (AUTO) 0.5 K/uL (0.8-1.0); MONOCYTES % (AUTO) 5.7 % (1.7-9.3); NEUTROPHILS # (AUTO) 5.9 K/uL (1.8-7.7); NEUTROPHILS % (AUTO) 72.4 % (42.2-75.2); PLATELET COUNT (AUTO) 220 K/uL (140-450); RED BLOOD CELL COUNT(AUTO) 4.68 MIL/uL (4.20-5.40); RED CELL DISTRIBUTION WIDTH 16.2 % (11.6-13.7); WHITE BLOOD COUNT (AUTO) 8.1 K/uL (4.8-10.8)
[2024-06-24 09:26] LABS: ALBUMIN 3.6 g/dL (3.4-5.0); ANION GAP 11.3 (8-16); CALCIUM 8.8 mg/dL (8.5-10.1); CARBON DIOXIDE 27.5 mmol/L (21-32); CHOL/HDL RATIO 2.9 (1-4.5); CREATININE 0.9 mg/dL (0.6-1.3); POTASSIUM 3.8 mmol/L (3.5-5.1); TOTAL BILIRUBIN 0.4 mg/dL (0.0-1.0)
[2024-06-24 10:37] LABS: INR 1.86 (0.8-1.2); PROTHROMBIN TIME 18.9 secs (10.8-13.4)
== END 2024-06-24 17:36 | disposition home or self-care (01) ==
LOC: MLB 08:23
PROVIDERS: ATTEND Family Medicine
DX: Z12.2 Encounter for screening for malignant neoplasm of respiratory organs (principal); E11.9 Type 2 diabetes mellitus without complications; J44.9 Chronic obstructive pulmonary disease, unspecified; I25.10 Atherosclerotic heart disease of native coronary artery without angina pectoris; R91.1 Solitary pulmonary nodule
CPT/HCPCS: 36415; 71250; 80053; 83036; 85025; 85610